=== PATIENT | female | born 1935 | race Caucasian/White ===

== ENCOUNTER 2016-08-29 14:22 | Emergency (ER) | payer MEDICARE ==
--- NOTE | 2016-08-29 14:58 | ED ---
Fall HPI - General Chief Complaint: Fall Stated Complaint: Fall/Head injury Time Seen by Provider: 08/29/16 14:38 Source: patient Mode of arrival: ambulatory - History of Present Illness Initial Comments: The patient is a 81-year-old female who presents to the ED with a chief complaint of fall. The patient states that she was walking down into her son's basement when her foot slipped on the final step and she flew forward. Patient states that she landed on the right side of her body, including her right elbow , right knee, right side of her face. The patient hit her head against a concrete floor. The patient states that she did not lose consciousness in the fall. She states that the fall was witnessed by her son who confirmed that she never lost consciousness. The patient has been ambulatory since the fall. Her friend states that she has been acting normally since the fall. The patient does have bruising of the right knee, right elbow. Patient also has bruising just above her right eye. The patient states that she is having pain in her right elbow and her right eye. Patient denies any nausea. The patient does not take any systemic anticoagulation. She states that she takes an occasional aspirin when she has a headache or other body pain. The patient states that her last dose of aspirin was yesterday. This was a full-strength aspirin. The patient denies any falls within the past 6 months. - Related Data Home Medications Medication Instructions Recorded Confirmed Cholecalciferol [Vitamin D3] 5,000 unit PO MOWE 08/29/16 08/29/16 Multivits-Min/Iron/FA/Lutein 1 tab PO DAILY 08/29/16 08/29/16 [Centrum Silver Women Tablet] Allergies Allergy/AdvReac Type Severity Reaction Status Date / Time codeine Allergy Unknown Verified 08/29/16 15:01 Penicillins Allergy Unknown Verified 08/29/16 15:01 sulfamethoxazole Allergy Unknown Verified 08/29/16 15:01 [From Bactrim] trimethoprim [From Bactrim] Allergy Unknown Verified 08/29/16 15:01 Review of Systems ROS Statement: Those systems with pertinent positive or pertinent negative responses have been documented in the HPI. ROS Other: All systems not noted in ROS Statement are negative. Constitutional: Denies: fever, chills, weakness Eyes: Denies: eye pain, eye discharge, vision change ENT: Denies: ear pain, throat pain, dental pain Respiratory: Denies: cough, dyspnea, wheezes, stridor Cardiovascular: Denies: chest pain Endocrine: Denies: fatigue Gastrointestinal: Denies: abdominal pain, nausea, vomiting, diarrhea, constipation Genitourinary: Denies: urgency, dysuria, frequency, hematuria Musculoskeletal: Reports: other (pain in the right shoulder, knee and elbow) Skin: Reports: change in color, other (bruise above right eye, elbow, shoulder, knee). Denies: rash, lesions Neurological: Denies: headache, weakness, numbness, paresthesias, confusion Psychiatric: Denies: anxiety, depression Past Medical History Past Medical History: No Reported History History of Any Multi-Drug Resistant Organisms: None Reported Past Surgical History: Hysterectomy Past Psychological History: No Psychological Hx Reported Smoking Status: Never smoker Past Alcohol Use History: None Reported Past Drug Use History: None Reported General Exam Limitations: no limitations General appearance: alert, in no apparent distress Head exam: Present: other (Bruise located above patient's right eye. This area is tender to palpation. There is no crepitus) Eye exam: Present: normal appearance, PERRL, EOMI, periorbital swelling, periorbital tenderness. Absent: scleral icterus, conjunctival injection, nystagmus Pupils: Present: normal accommodation, other (pupils are 4mm, equal and reactive to light) ENT exam: Present: normal exam Neck exam: Present: normal inspection, other (no tenderness to palpation of the spinous processes of the cervical spine) Respiratory exam: Present: normal lung sounds bilaterally. Absent: respiratory distress, wheezes, rales, chest wall tenderness Cardiovascular Exam: Present: regular rate, normal rhythm GI/Abdominal exam: Present: soft. Absent: distended, tenderness, guarding, rebound Extremities exam: Present: full ROM, tenderness (tenderness to palpation over the olecranon process of the right elbow), normal capillary refill, other ( swelling and bruising just inferolateral to the right knee) Back exam: Present: normal inspection, full ROM. Absent: tenderness Neurological exam: Present: alert, oriented X3, CN II-XII intact, normal gait, other (patient able to ambulate without assistance) Psychiatric exam: Present: normal affect, normal mood. Absent: depressed, agitated, anxious Skin exam: Present: warm, dry, intact, other (bruising noted above right eye, right elbow, right knee) Course Vital Signs 08/29/16 14:28 Temperature 98.1 F Pulse Rate 80 Respiratory 20 Rate Blood Pressure 196/88 O2 Sat by Pulse 99 Oximetry Medical Decision Making - Medical Decision Making Patient is a 81-year-old female who presents with a chief complaint of fall. Patient lost her balance and fell forward, hitting her head, elbow, right knee against a concrete floor. There was no LOC. Patient does not take any antiplatelet agents or oral anticoagulation on a regular basis. She does take an occasional full-strength aspirin. Patient is complaining of pain in the right elbow, right knee, right shoulder. Patient also has injury to face just above her right eye. This is tender to palpation. Patient has full range of motion of the affected joints. Distal PMS intact of right upper extremity and right lower extremity. The patient able to ambulate without any pain or any need of assistance. Neurologic exam within normal limits. Cranial nerves intact. Given patient's age, will order CT head and CT C-spine. CT face given bruising about patient's right eye. Check x-ray imaging of right ribs, chest, right shoulder, right elbow, right knee. Patient states that she would not like any medications for pain control at this point in time. 4:27 PM Updated patient of overall findings including no evidence of intracranial bleed or fracture. Patient will be discharged home at this point in time. Counseled her that the bruising over her right eye may worsen over the course of the next 24-48 hours. Encouraged her to return to the ED should she develop confusion, nausea or vomiting while at home. I have answered all of the patient's questions to her satisfaction. Disposition Clinical Impression: Fall, Contusion of face, Traumatic ecchymosis of right elbow, Traumatic ecchymosis of right knee Disposition: HOME SELF-CARE Condition: Good Instructions: Fall Prevention for Older Adults (ED) Additional Instructions: Please return to the ED should you have worsening headache, nausea, or confusion while at home. Time of Disposition: 16:29
--- NOTE | 2016-08-29 15:43 | CT ---
EXAMINATION TYPE: CT brain bindu wo con DATE OF EXAM: 08/29/2016 3:35 PM COMPARISON: NONE HISTORY: 81-year-old female with fall and head injury, rule out bleed CT DLP: Total combined radiation dose reported on facial bone study. Automated exposure control for dose reduction was used. Technique: Examination of the head was done in axial plane without intravenous contrast. Coronal and sagittal reconstructions performed. CT of the cervical spine was obtained in axial plane without intravenous injection of contrast mater ial. Coronal and sagittal reformatted images were obtained from the axial views for evaluation of f ractures, spinal alignment and canal. FINDINGS: Head: There is no evidence of acute intracranial hemorrhage, acute ischemic changes, mass, mass-effect, or extra-axial fluid collection. There is no effacement of cerebral sulci or basal subarachnoid cister ns. There is no hydrocephalus. There is no midline shift. Travis-white matter distinction is preserv ed. There is mild generalized supratentorial volume loss. There is right frontal and periorbital soft tissue contusion and hematoma. No underlying calvarial fr acture. Mastoid air cells well pneumatized. Cervical spine: No craniocervical junction of the body, predental space widening, or prevertebral soft tissue swellin g. Moderate disc/endplate degenerative changes present from C4 through C7 levels. There are disc osteoph yte complexes and marked uncovertebral joint arthropathy and scattered hypertrophic facet arthropathy as well. Alignment is maintained. No acute fracture of the cervical spine. Changes result in moderate to severe right-sided neuroforaminal stenoses at C3-C4 and C4-C5 and varia ble mild neuroforaminal narrowing at additional levels. No significant spinal canal stenosis seen. No prevertebral or paravertebral soft tissue abnormality. COMBINED IMPRESSION: 1. Right frontal scalp and periorbital soft tissue contusion. No underlying calvarial fracture or acu te intracranial abnormality seen. 2. No acute fracture or malalignment of the cervical spine. Moderate spondylotic change especially in the mid cervical spine. Resultant moderate to severe neuroforaminal stenosis on the right at C3-C4 a nd C4-C5.
--- NOTE | 2016-08-29 15:52 | CT ---
EXAMINATION TYPE: CT facial bones wo con DATE OF EXAM: 08/29/2016 3:43 PM COMPARISON: NONE HISTORY: 81-year-old female with fall, rule out fracture, hematoma over the right thigh CT DLP: 1838.9 mGycm (total for the CT brain, facial bones, and cervical spine) Automated exposure control for dose reduction was used. TECHNIQUE: CT scan of the facial bones is performed without contrast, axial images are obtained, mariya nal reformatted images are also reviewed. FINDINGS: There is right periorbital soft tissue contusion/hematoma. Orbits and globes remain intact. No facial bone fracture. Slight rightward nasal septal deviation. IMPRESSION: Right periorbital soft tissue contusion/hematoma. No underlying acute orbital or facial bone fracture .
--- NOTE | 2016-08-29 16:07 | XR ---
EXAMINATION TYPE: PA view chest and right rib series. 2 views right shoulder. 3 views right elbow. 3 views right knee. DATE OF EXAM: 08/29/2016 3:58 PM COMPARISON: NONE HISTORY: 81-year-old female with fall down basement stairs today, pain. Rule out fracture. FINDINGS: CHEST: Heart is upper limits of normal in size with mild elongation of the thoracic aorta and at this chroni c arch calcifications. Strandy atelectasis at the lower lungs. No consolidation, pneumothorax, or ple ural effusion. Right RIBS: No displaced right rib fracture. Right shoulder: Moderate degenerative change at the AC joint. AC joint remains intact. Bony sclerosis and irregularit y at the greater tuberosity suggests chronic rotator cuff tendinopathy. No acute fracture, subluxatio n, or dislocation. Right elbow: No significant elbow joint effusion. Obliquity on the lateral view limits optimal evaluation of the p osterior fat-pad of the elbow. No acute fracture, subluxation, or dislocation. Right knee: Extensor mechanism remains intact. There is mild anterior infrapatellar soft tissue swelling. No acut e fracture, subluxation, or dislocation. IMPRESSION: 1. Chest: No acute cardiopulmonary process. 2. Right ribs: No displaced right rib fracture. 3. Right shoulder: Moderate AC joint osteoarthrosis and changes of chronic rotator cuff tendinopathy. No acute osseous abnormality seen. 4. Right elbow: Slightly suboptimal positioning on the lateral view for assessment of the posterior f at pad. No acute osseous abnormality seen. 5. Right knee: Mild anterior infrapatellar soft tissue swelling. No acute osseous abnormality seen.
[2016-08-29 16:39] VITALS: BP 156/79; PULSE 76; RESP 18; TEMP 98.2
== END 2016-08-29 16:39 | disposition home or self-care (01) ==
LOC: EC 14:22
DX: S00.11XA Contusion of right eyelid and periocular area, initial encounter (principal); S50.01XA Contusion of right elbow, initial encounter; S80.01XA Contusion of right knee, initial encounter; M25.511 Pain in right shoulder; Z88.0 Allergy status to penicillin; Z88.2 Allergy status to sulfonamides; Z88.1 Allergy status to other antibiotic agents; Z88.5 Allergy status to narcotic agent; Z79.899 Other long term (current) drug therapy; W10.9XXA Fall (on) (from) unspecified stairs and steps, initial encounter; Y93.01 Activity, walking, marching and hiking; Y92.018 Other place in single-family (private) house as the place of occurrence of the external cause
CPT/HCPCS: 70450; 70486; 72125; 99284

== ENCOUNTER → 2016-10-14 | Outpatient (CLI) | payer MEDICARE ==
[2016-10-14 09:57] LABS: Basophils # (A) 0.1 k/uL (0-0.2); Basophils % (A) 1 %; CH 32.2; CHCM 33.2; Eosinophils # (A) 0.1 k/uL (0-0.7); Eosinophils % (A) 3 %; HCT 46.4 % (34.0-46.0); HDW 2.38; Luc % (Auto) 2; Lymphocytes # (A) 1.4 k/uL (1.0-4.8); Lymphocytes % (A) 28 %; MCH 31.5 pg (25.0-35.0); MCHC 32.4 g/dL (31.0-37.0); MCV 97.3 fL (80.0-100.0); Mean Platelet Volume 7.8; Monocytes # (A) 0.2 k/uL (0-1.0); Monocytes % (A) 5 %; Neutrophils % (A) 61 %; RBC 4.76 m/uL (3.80-5.40); RDW 12.8 % (11.5-15.5); WBC 4.8 k/uL (3.8-10.6)
[2016-10-14 10:11] LABS: ALT 28 U/L (9-52); AST 28 U/L (14-36); Alkaline Phosphatase 69 U/L (38-126); Anion Gap 11 mmol/L; Blood Urea Nitrogen 22 mg/dL (7-17); Calcium 9.6 mg/dL (8.4-10.2); Carbon Dioxide 29 mmol/L (22-30); Chloride 103 mmol/L (98-107); Cholesterol 205 mg/dL (<200); Glucose 93 mg/dL (74-99); HDL Cholesterol 52 mg/dL (40-60); Non-African American GFR(MDRD) >60 (>60 ml/min/1.73 sqM); Potassium 4.4 mmol/L (3.5-5.1); Sodium 143 mmol/L (137-145); Total Bilirubin 0.9 mg/dL (0.2-1.3); Total Protein 7.2 g/dL (6.3-8.2); Triglycerides 94 mg/dL (<150)
[2016-10-14 10:15] LABS: Appearance,Urine Clear (Clear); Bilirubin,Urine Negative (Negative); Glucose,Urine (UA) Negative (Negative); Ketones,Urine Negative (Negative); Leukocyte Esterase,Urine Negative (Negative); Nitrite,Urine Negative (Negative); PH, Urine 6.5 (5.0-8.0); Particle Count 1015; Protein,Urine Negative (Negative); RBC,Urine 3 /hpf (0-5); Specific Gravity,Urine 1.005 (1.001-1.035); Squamous Epithelial Cell,Urine 1 /hpf (0-4); UA Billing (MACRO vs. MICRO) MICRO; Urobilinogen,Urine <2.0 mg/dL (<2.0); WBC,Urine <1 /hpf (0-5)
--- NOTE | 2016-10-16 08:00 | MM ---
Reason for exam: screening (asymptomatic). Last mammogram was performed 1 year and 1 month ago. History: Patient is postmenopausal and history of other cancer. Family history of breast cancer in maternal aunt and breast cancer in paternal aunt. Benign stereotactic core biopsy of the left breast, February 14, 2002. Core biopsy of the left breast. 4 excisional biopsies of the left breast. 2 excisional biopsies of the right breast. Took estrogen for 2 years beginning at age 39. Physical Findings: A clinical breast exam by your physician is recommended on an annual basis and results should be correlated with mammographic findings. MG 3D Screening Mammo W/Cad Bilateral CC and MLO view(s) were taken. Prior study comparison: September 26, 2015, bilateral MG screening mammo w CAD. September 13, 2014, bilateral MG screening mammo w CAD. September 12, 2013, CAD bilateral diagnostic mammogram. There are scattered fibroglandular densities. Finding: There are typically benign dystrophic, segmental calcifications in the anterior position of the left breast. Previous mammotome biopsy in the left breast. There is no discrete abnormality. ASSESSMENT: Benign, BI-RAD 2 RECOMMENDATION: Routine screening mammogram of both breasts in 1 year.
== END | disposition home or self-care (01) ==
LOC: RADMAMWWP 09:10
PROVIDERS: ATTEND Family Medicine
DX: Z12.31 Encounter for screening mammogram for malignant neoplasm of breast (principal); Z00.00 Encounter for general adult medical examination without abnormal findings
CPT/HCPCS: 80061; 80053; 85025; 81001; 87086; 77063; G0202

== ENCOUNTER → 2017-08-25 | Outpatient (CLI) | payer MEDICARE ==
[2017-08-25 15:48] LABS: HCT 43.6 % (34.0-46.0); HGB 14.7 gm/dL (11.4-16.0); MCH 31.6 pg (25.0-35.0); MCHC 33.8 g/dL (31.0-37.0); MCV 93.6 fL (80.0-100.0); Mean Platelet Volume 7.5; Platelet Count 166 k/uL (150-450); RBC 4.66 m/uL (3.80-5.40); RDW 12.3 % (11.5-15.5); WBC 5.9 k/uL (3.8-10.6)
[2017-08-25 15:49] LABS: Appearance,Urine Clear (Clear); Bilirubin,Urine Negative (Negative); Blood,Urine Small (Negative); Color,Urine Light Yellow; Glucose,Urine (UA) Negative (Negative); Ketones,Urine Negative (Negative); Leukocyte Esterase,Urine Negative (Negative); Nitrite,Urine Negative (Negative); PH, Urine 6.5 (5.0-8.0); Protein,Urine Negative (Negative); RBC,Urine 11 /hpf (0-5); Specific Gravity,Urine 1.011 (1.001-1.035); Squamous Epithelial Cell,Urine 2 /hpf (0-4); Urobilinogen,Urine <2.0 mg/dL (<2.0); WBC,Urine <1 /hpf (0-5)
[2017-08-25 15:51] LABS: Potassium 4.6 mmol/L (3.5-5.1)
[2017-08-25 16:08] LABS: T4, Free (Free Thyroxine) 0.99 ng/dL (0.78-2.19)
== END | disposition home or self-care (01) ==
LOC: LABWHC1 14:48
PROVIDERS: ATTEND Family Medicine
DX: I10 Essential (primary) hypertension (principal); R31.21 Asymptomatic microscopic hematuria
CPT/HCPCS: 36415; 80048; 81001; 84439; 84443; 84450; 84460; 85027; 87086

== ENCOUNTER → 2017-09-08 | Outpatient (CLI) | payer MEDICARE ==
[2017-09-08 15:27] LABS: Appearance,Urine Clear (Clear); Bilirubin,Urine Negative (Negative); Blood,Urine Small (Negative); Color,Urine Light Yellow; Glucose,Urine (UA) Negative (Negative); Ketones,Urine Negative (Negative); Leukocyte Esterase,Urine Negative (Negative); Protein,Urine Negative (Negative); RBC,Urine 3 /hpf (0-5); Specific Gravity,Urine 1.007 (1.001-1.035); Squamous Epithelial Cell,Urine <1 /hpf (0-4); Urobilinogen,Urine <2.0 mg/dL (<2.0); WBC,Urine <1 /hpf (0-5)
[2017-09-08 15:50] LABS: Calcium 9.6 mg/dL (8.4-10.2); Potassium 4.7 mmol/L (3.5-5.1)
== END | disposition home or self-care (01) ==
LOC: LABWHC1 14:49
PROVIDERS: ATTEND Family Medicine
DX: R53.83 Other fatigue (principal); R31.21 Asymptomatic microscopic hematuria; R89.9 Unspecified abnormal finding in specimens from other organs, systems and tissues
CPT/HCPCS: 36415; 80048; 81001; 82306; 88108

== ENCOUNTER → 2017-09-14 | Outpatient (CLI) | payer MEDICARE ==
[2017-09-14 20:41] LABS: Anti-DNA, DS unit <1.0 IU/mL; DNA Double-Stranded NEGATIVE (NEGATIVE)
== END | disposition home or self-care (01) ==
LOC: LABWHC1 15:20
PROVIDERS: ATTEND Physician Assistant Medical
DX: L95.8 Other vasculitis limited to the skin (principal); S60.411A Abrasion of left index finger, initial encounter; R23.3 Spontaneous ecchymoses
CPT/HCPCS: 36415; 86038; 86162; 86225; 86235

== ENCOUNTER → 2017-10-01 | Outpatient (CLI) | payer MEDICARE ==
[2017-10-01 09:05] LABS: Appearance,Urine Clear (Clear); Bacteria,Urine Rare /hpf; Bilirubin,Urine Negative (Negative); Blood,Urine Trace (Negative); Color,Urine Yellow; Glucose,Urine (UA) Negative (Negative); Ketones,Urine Negative (Negative); Leukocyte Esterase,Urine Negative (Negative); Mucus,Urine Rare /hpf; Nitrite,Urine Negative (Negative); Protein,Urine Negative (Negative); RBC,Urine 3 /hpf (0-5); Specific Gravity,Urine 1.013 (1.001-1.035); Squamous Epithelial Cell,Urine 1 /hpf (0-4); Urobilinogen,Urine <2.0 mg/dL (<2.0); WBC,Urine 1 /hpf (0-5)
[2017-10-01 10:15] LABS: Cholesterol 216 mg/dL (<200); HDL Cholesterol 56 mg/dL (40-60); LDL Cholesterol,Calculated 136 mg/dL (0-99); Triglycerides 119 mg/dL (<150)
== END | disposition home or self-care (01) ==
LOC: LABWHC1 08:05
PROVIDERS: ATTEND Internal Medicine Interventional Cardiology
DX: N39.0 Urinary tract infection, site not specified (principal); I10 Essential (primary) hypertension
CPT/HCPCS: 36415; 80061; 81001

== ENCOUNTER → 2017-11-11 | Outpatient (CLI) | payer MEDICARE ==
--- NOTE | 2017-11-12 08:59 | MM ---
Reason for exam: screening (asymptomatic). Last mammogram was performed 1 year and 1 month ago. History: Patient is postmenopausal and history of other cancer. Family history of breast cancer in maternal aunt and breast cancer in paternal aunt. Benign stereotactic core biopsy of the left breast, February 14, 2002. Core biopsy of the left breast. 4 excisional biopsies of the left breast. 2 excisional biopsies of the right breast. Took estrogen for 2 years beginning at age 39. Physical Findings: A clinical breast exam by your physician is recommended on an annual basis and results should be correlated with mammographic findings. MG 3D Screening Mammo W/Cad Bilateral CC and MLO view(s) were taken. Prior study comparison: October 14, 2016, bilateral MG 3d screening mammo w/cad. September 26, 2015, bilateral MG screening mammo w CAD. There are scattered fibroglandular densities. Finding: There are dystrophic calcifications in the anterior position of the left breast. Previous mammotome biopsy in the left breast. There is no discrete abnormality. ASSESSMENT: Benign, BI-RAD 2 RECOMMENDATION: Routine screening mammogram of both breasts in 1 year.
== END | disposition home or self-care (01) ==
LOC: RADMAMWWP 08:14
PROVIDERS: ATTEND Obstetrics & Gynecology
DX: Z12.31 Encounter for screening mammogram for malignant neoplasm of breast (principal)
CPT/HCPCS: 77063; 77067

== ENCOUNTER → 2017-11-11 | Outpatient (CLI) | payer MEDICARE ==
--- NOTE | 2017-11-11 09:18 | US ---
EXAMINATION TYPE: US thyroid st tissue head/neck DATE OF EXAM: 11/11/2017 COMPARISON: US 04/10/2016 CLINICAL HISTORY: E04.1 Thyroid Nodule. GLAND SIZE: Right Lobe: Surgically absent cm Left Lobe: 4.5 x 2.0 x 1.6 cm Overall Parenchyma: heterogeneous Isthmus Thickness: 0.3 cm NODULES RIGHT: # of nodules measured on right: 0 LEFT: # of nodules measured on left: 2 1. 0.3 X 0.3 x 0.4 cm hypoechoic cystic nodule at the upper/mid pole with well-defined margins; . This nodule is wider than tall and shows no intranodular vascularity. Prior size: Not previous visualized 2. 0.6 X 0.3 x 0.6 cm hypoechoic solid nodule at the upper pole with well-defined margins; . This n odule is wider than tall and shows intranodular vascularity. Prior size: 0.6 x 0.3 ISTHMUS: # of nodules measured in the isthmus: 0 Bilateral neck scanned, no evidence of lymphadenopathy. IMPRESSION: Stable size of a 6 mm left thyroid nodule in comparison to the exam of 04/10/2016, favored to be benig n and new cystic-appearing 4 mm left thyroid lesion. Surveillance could be performed given history of right thyroidectomy.
== END ==
LOC: RADUSWWP 08:10
PROVIDERS: ATTEND Otolaryngology
DX: E04.2 Nontoxic multinodular goiter (principal); Z90.89 Acquired absence of other organs
CPT/HCPCS: 76536

== ENCOUNTER → 2018-07-17 | Outpatient (CLI) | payer MEDICARE ==
[2018-07-17 09:55] LABS: Basophils # (A) 0.1 k/uL (0-0.2); Basophils % (A) 1 %; Eosinophils # (A) 0.2 k/uL (0-0.7); Eosinophils % (A) 5 %; HCT 45.8 % (34.0-46.0); HGB 14.6 gm/dL (11.4-16.0); Lymphocytes # (A) 1.3 k/uL (1.0-4.8); Lymphocytes % (A) 28 %; MCH 30.6 pg (25.0-35.0); MCHC 31.9 g/dL (31.0-37.0); MCV 95.9 fL (80.0-100.0); Mean Platelet Volume 6.9; Monocytes # (A) 0.2 k/uL (0-1.0); Monocytes % (A) 5 %; Neutrophils # (A) 2.8 k/uL (1.3-7.7); Neutrophils % (A) 59 %; Platelet Count 171 k/uL (150-450); RBC 4.78 m/uL (3.80-5.40); RDW 12.9 % (11.5-15.5); WBC 4.7 k/uL (3.8-10.6)
[2018-07-17 10:48] LABS: Appearance,Urine Cloudy (Clear); Bacteria,Urine Many /hpf; Bilirubin,Urine Negative (Negative); Blood,Urine Small (Negative); Color,Urine Yellow; Glucose,Urine (UA) Negative (Negative); Ketones,Urine Negative (Negative); Leukocyte Esterase,Urine Large (Negative); Mucus,Urine Rare /hpf; Nitrite,Urine Positive (Negative); PH, Urine 6.5 (5.0-8.0); Protein,Urine Negative (Negative); RBC,Urine 5 /hpf (0-5); Specific Gravity,Urine 1.012 (1.001-1.035); Squamous Epithelial Cell,Urine 5 /hpf (0-4); Urobilinogen,Urine <2.0 mg/dL (<2.0); WBC,Urine 34 /hpf (0-5)
[2018-07-17 17:12] LABS: Albumin 4.2 g/dL (3.80-4.90); Albumin/Globulin Ratio 2.21 (1.20-2.10); Anion Gap 5.9 mmol/L (4.00-12.00); Calcium 9.3 mg/dL (8.7-10.3); Carbon Dioxide 29.1 mmol/L (21.6-31.8); Globulin 1.9 g/dL (1.6-3.3); Potassium 4.5 mmol/L (3.5-5.5); Total Bilirubin 0.5 mg/dL (0.2-1.2); Total Protein 6.1 g/dL (6.2-8.2)
== END | disposition home or self-care (01) ==
LOC: LABWHC1 09:39
PROVIDERS: ATTEND Family Medicine
DX: Z00.01 Encounter for general adult medical examination with abnormal findings (principal); E78.00 Pure hypercholesterolemia, unspecified; M81.0 Age-related osteoporosis without current pathological fracture
CPT/HCPCS: 36415; 80053; 80061; 81001; 82306; 84443; 85025

== ENCOUNTER → 2018-08-20 | Outpatient (CLI) | payer MEDICARE ==
[2018-08-20 11:08] LABS: Basophils # (A) 0.1 k/uL (0-0.2); Basophils % (A) 1 %; Eosinophils # (A) 0.2 k/uL (0-0.7); Eosinophils % (A) 5 %; HCT 44.8 % (34.0-46.0); HGB 14.9 gm/dL (11.4-16.0); Lymphocytes # (A) 0.9 k/uL (1.0-4.8); Lymphocytes % (A) 16 %; MCH 31.5 pg (25.0-35.0); MCHC 33.2 g/dL (31.0-37.0); MCV 94.9 fL (80.0-100.0); Mean Platelet Volume 7.7; Monocytes # (A) 0.3 k/uL (0-1.0); Monocytes % (A) 6 %; Neutrophils # (A) 3.7 k/uL (1.3-7.7); Neutrophils % (A) 71 %; Platelet Count 149 k/uL (150-450); RBC 4.72 m/uL (3.80-5.40); RDW 12.6 % (11.5-15.5); WBC 5.3 k/uL (3.8-10.6)
[2018-08-20 17:54] LABS: Calcium 9.5 mg/dL (8.7-10.3); Potassium 4.5 mmol/L (3.5-5.5)
== END ==
LOC: LABWHC1 09:26
PROVIDERS: ATTEND Family Medicine
DX: L03.211 Cellulitis of face (principal); N28.9 Disorder of kidney and ureter, unspecified
CPT/HCPCS: 36415; 80048; 85025

== ENCOUNTER 2018-08-28 02:52 | Observation (INO) | payer MEDICARE ==
--- NOTE | 2018-08-28 03:25 | ED ---
General Adult HPI - General Chief complaint: Chest Pain Stated complaint: Chest/Back Pain Time Seen by Provider: 08/28/18 03:08 Source: patient Mode of arrival: ambulatory Limitations: no limitations - History of Present Illness Initial comments: Miss Tinajero is a pleasant 83-year-old female who presents the emergency department today for evaluation of chest and back pain which woke her from sleep. Patient reports that she's been having some intermittent chest heaviness in the sensation that she describes as feeling like there is cooled with in her chest which radiates to her arms. This is been happening intermittently throughout the past week. She reports that 2 times this week she 's been woken from sleep with chest pain. She does state that when she has this chest pain this morning she did have some burping afterwards which she thinks may be related to some stomach upset. Patient denies any lightheadedness , diaphoresis or shortness of breath. She denies any previous cardiac history. Patient has no history of hypertension hyperlipidemia or ease. She has been seen by cardiology once in the past for a leaky valve. She's never been told she has an irregular EKG. - Related Data Home Medications Medication Instructions Recorded Confirmed Cholecalciferol [Vitamin D3] 5,000 unit PO MOWE 08/29/16 08/28/18 Multivit-Min/Iron/Folic/Lutein 1 tab PO DAILY 08/29/16 08/28/18 [Centrum Silver Women Tablet] Allergies Allergy/AdvReac Type Severity Reaction Status Date / Time codeine Allergy Unknown Verified 08/29/16 15:01 Penicillins Allergy Unknown Verified 08/29/16 15:01 sulfamethoxazole Allergy Unknown Verified 08/29/16 15:01 [From Bactrim] trimethoprim [From Bactrim] Allergy Unknown Verified 08/29/16 15:01 Review of Systems ROS Statement: Those systems with pertinent positive or pertinent negative responses have been documented in the HPI. ROS Other: All systems not noted in ROS Statement are negative. Past Medical History Past Medical History: No Reported History History of Any Multi-Drug Resistant Organisms: None Reported Past Surgical History: Hysterectomy Past Psychological History: No Psychological Hx Reported Smoking Status: Never smoker Past Alcohol Use History: None Reported Past Drug Use History: None Reported General Exam - General Exam Comments Initial Comments: Physical Exam GENERAL: Patient is well-developed and well-nourished. Patient is nontoxic and well- hydrated and is in no distress. HENT: Normocephalic, Atraumatic. EYES: PERRL, EOMI PULMONARY: Unlabored respirations. No audible rales rhonchi or wheezing was noted. CARDIOVASCULAR: There is a regular rate and rhythm without any gallops or rubs. Systolic murmur ABDOMEN: Soft and nontender with normal bowel sounds. SKIN: Skin is clear with no lesions or rashes and otherwise unremarkable. : Deferred NEUROLOGIC: Patient is alert and oriented x3. Moving all extremities spontaneously MUSCULOSKELETAL: Normal extremities with adequate strength and full range of motion. No lower extremity swelling or edema. No calf tenderness. PSYCHIATRIC: Normal psychiatric evaluation. Limitations: no limitations Limitations: no limitations Course Vital Signs 08/28/18 02:58 Temperature 97.7 F Pulse Rate 80 Respiratory 20 Rate Blood Pressure 190/78 O2 Sat by Pulse 99 Oximetry EKG Findings - EKG Comments: EKG Findings:: EKG is obtained at 3:10 AM, rate of 79 rhythm is sinus there is a right bundle branch block, [place] intervals 142 QRS is 122 QTc is [address] elevations or depressions there is no evidence of acute ischemia or infarction. There are no previous EKGs in our system for comparison. Medical Decision Making - Medical Decision Making The patient was seen and evaluated history was obtained from the patient Patient with no cardiac history presenting with intermittent episodes of chest discomfort and heaviness as well as waking from sleep with chest pain. The symptoms patient describes today that woke her from sleep do seem to be GI in nature as she woke from sleep with a burning pressure-like discomfort in her chest which improved after burping however the patient does report she's been having some heaviness in her chest throughout the week which she describes as a feeling that there is cold inside her chest that radiates to her arms. EKG reveals right bundle branch block with no previous for comparison Chest x-ray is unremarkable Labs in the ER reveal a negative troponin, mildly elevated BUN and creatinine concerning for dehydration Patient's never had a thorough cardiac evaluation considering her advanced age and concerning symptoms I will plan to place her in observation for further evaluation by cardiology. Additional labs and echo were ordered and patient was admitted with a consult to cardiology - Lab Data Result diagrams: 08/28/18 03:27 08/28/18 03:27 Lab Results 08/28/18 08/28/18 08/28/18 Range/Units 03:27 03:27 03:27 WBC 5.0 (3.8-10.6) k/uL RBC 4.57 (3.80-5.40) m/uL Hgb 14.6 (11.4-16.0) gm/dL Hct 43.8 (34.0-46.0) % MCV 95.8 (80.0-100.0) fL MCH 32.0 (25.0-35.0) pg MCHC 33.4 (31.0-37.0) g/dL RDW 12.9 (11.5-15.5) % Plt Count 156 (150-450) k/uL Neutrophils % 52 % Lymphocytes % 28 % Monocytes % 9 % Eosinophils % 6 % Basophils % 1 % Neutrophils # 2.6 (1.3-7.7) k/uL Lymphocytes # 1.4 (1.0-4.8) k/uL Monocytes # 0.4 (0-1.0) k/uL Eosinophils # 0.3 (0-0.7) k/uL Basophils # 0.1 (0-0.2) k/uL PT (9.0-12.0) sec INR (<1.2) APTT (22.0-30.0) sec Sodium 142 (137-145) mmol/L Potassium 4.5 (3.5-5.1) mmol/L Chloride 108 H (98-107) mmol/L Carbon Dioxide 25 (22-30) mmol/L Anion Gap 9 mmol/L BUN 20 H (7-17) mg/dL Creatinine 1.17 H (0.52-1.04) mg/dL Est GFR (CKD-EPI)AfAm 51 (>60 ml/min/1.73 sqM) Est GFR (CKD-EPI)NonAf 44 (>60 ml/min/1.73 sqM) Glucose 105 H (74-99) mg/dL Calcium 9.7 (8.4-10.2) mg/dL Magnesium 2.2 (1.6-2.3) mg/dL Total Bilirubin 0.5 (0.2-1.3) mg/dL AST 28 (14-36) U/L ALT 34 (9-52) U/L Alkaline Phosphatase 85 (38-126) U/L Troponin I (0.000-0.034) ng/mL NT-Pro-B Natriuret Pep 136 pg/mL Total Protein 6.8 (6.3-8.2) g/dL Albumin 4.2 (3.5-5.0) g/dL 08/28/18 08/28/18 Range/Units 03:27 03:27 WBC (3.8-10.6) k/uL RBC (3.80-5.40) m/uL Hgb (11.4-16.0) gm/dL Hct (34.0-46.0) % MCV (80.0-100.0) fL MCH (25.0-35.0) pg MCHC (31.0-37.0) g/dL RDW (11.5-15.5) % Plt Count (150-450) k/uL Neutrophils % % Lymphocytes % % Monocytes % % Eosinophils % % Basophils % % Neutrophils # (1.3-7.7) k/uL Lymphocytes # (1.0-4.8) k/uL Monocytes # (0-1.0) k/uL Eosinophils # (0-0.7) k/uL Basophils # (0-0.2) k/uL PT 10.5 (9.0-12.0) sec INR 1.0 (<1.2) APTT 23.2 (22.0-30.0) sec Sodium (137-145) mmol/L Potassium (3.5-5.1) mmol/L Chloride (98-107) mmol/L Carbon Dioxide (22-30) mmol/L Anion Gap mmol/L BUN (7-17) mg/dL Creatinine (0.52-1.04) mg/dL Est GFR (CKD-EPI)AfAm (>60 ml/min/1.73 sqM) Est GFR (CKD-EPI)NonAf (>60 ml/min/1.73 sqM) Glucose (74-99) mg/dL Calcium (8.4-10.2) mg/dL Magnesium (1.6-2.3) mg/dL Total Bilirubin (0.2-1.3) mg/dL AST (14-36) U/L ALT (9-52) U/L Alkaline Phosphatase (38-126) U/L Troponin I <0.012 (0.000-0.034) ng/mL NT-Pro-B Natriuret Pep pg/mL Total Protein (6.3-8.2) g/dL Albumin (3.5-5.0) g/dL Disposition Clinical Impression: Chest pain Disposition: ADMITTED IP TO THIS HOSP Condition: Stable Is patient prescribed a controlled substance at d/c from ED?: No Referrals: Shaggy Silva DO [Primary Care Provider] - 1-2 days
[2018-08-28 03:47] LABS: Basophils # (A) 0.1 k/uL (0-0.2); Basophils % (A) 1 %; Eosinophils # (A) 0.3 k/uL (0-0.7); Eosinophils % (A) 6 %; HCT 43.8 % (34.0-46.0); HGB 14.6 gm/dL (11.4-16.0); Lymphocytes # (A) 1.4 k/uL (1.0-4.8); Lymphocytes % (A) 28 %; MCHC 33.4 g/dL (31.0-37.0); MCV 95.8 fL (80.0-100.0); Mean Platelet Volume 7.4; Monocytes # (A) 0.4 k/uL (0-1.0); Monocytes % (A) 9 %; Neutrophils # (A) 2.6 k/uL (1.3-7.7); Neutrophils % (A) 52 %; Platelet Count 156 k/uL (150-450); RBC 4.57 m/uL (3.80-5.40); RDW 12.9 % (11.5-15.5)
[2018-08-28 03:55] LABS: Partial Thromboplastin Time 23.2 sec (22.0-30.0); Prothrombin Time 10.5 sec (9.0-12.0)
[2018-08-28 03:57] LABS: Albumin 4.2 g/dL (3.5-5.0); Calcium 9.7 mg/dL (8.4-10.2); Magnesium 2.2 mg/dL (1.6-2.3); Potassium 4.5 mmol/L (3.5-5.1); Total Bilirubin 0.5 mg/dL (0.2-1.3); Total Protein 6.8 g/dL (6.3-8.2)
[2018-08-28] MEDS ORDERED: NITROGLYCERIN SL TABS 0.4 MG TAB SUBLINGUAL PRN (04:27)
--- NOTE | 2018-08-28 04:38 | XR ---
INDICATION: Chest pain COMPARISON: CXR 08/29/16 FINDINGS: Frontal and lateral views of the chest are obtained. The cardiomediastinal silhouette is within normal limits. Pulmonary vascularity is normal. The lungs are clear. There is no pleural effusion or pneumothorax. There are no acute osseous findings. IMPRESSION: No radiographic evidence of acute cardiopulmonary disease.
[2018-08-28] MEDS: LOSARTAN 25 MG TAB PO SCH (10:40)
[2018-08-28] MEDS: amLODIPine 10 MG TAB PO SCH (10:40)
--- NOTE | 2018-08-28 11:44 | P.CRDCN ---
History of Present Illness History of present illness: This is a pleasant 83-year-old female past medical history significant for hypertension. She follows in the office with Dr. Barraza. we have been asked to see her in consultation for a episode of chest discomfort last night. She states she woke up around 2:00 in the morning with the pain around her torso underneath her breasts. She states it felt like a tight sensation like somebody was wrapping a rubber band around her body. She denies radiation down the arm, into the neck or into the jaw. She denies associated shortness of breath, dizziness, palpitations, nausea, vomiting or diaphoresis. Symptoms lasted approximately 3-4 minutes and subsided on her own. Upon arrival to the hospital EKG was performed and revealed right bundle branch block pattern with no acute ST or T wave abnormalities noted. Blood pressure was elevated on admission 190/78 with a heart rate of 80. She was on lisinopril approximately 2 months ago this was discontinued secondary to it causing throat irritation. No other medication was initiated at that time. She states she checks her blood pressure regularly at home and is fairly well-controlled always. Typically systolic blood pressures in the 130s. She denies any further symptoms of chest discomfort since coming to the hospital. She is seen and examined resting comfortably in bed in no acute distress. Chest x-ray is negative for an acute cardiopulmonary process. Laboratory data reviewed, cardiac enzymes negative 1, WBC 5, hemoglobin 14.6, platelets 156, sodium 142, potassium 4.5, creatinine 1.17, magnesium 2.2. She takes no daily cardiac medications. Most recent echocardiogram obtained in the office reveals preserved left ventricular systolic function with mild aortic regurgitation. At the time of my exam: CONSTITUTIONAL: Denies fever. Denies chills. EYES: Denies blurred vision. Denies vision changes. Denies eye pain. EARS, NOSE, MOUTH & THROAT: Denies headache. Denies sore throat. Denies ear pain. CARDIOVASCULAR: Denies chest pain. Denies shortness of breath. Denies orthopnea. Denies PND. Denies palpitations. RESPIRATORY: Denies cough. GASTROINTESTINAL: Denies abdominal pain. Denies diarrhea. Denies constipation. Denies nausea. Denies vomiting. MUSCULOSKELETAL: Denies myalgias. INTEGUMENTARY: Denies pruitis. Denies rash. NEUROLOGIC: Denies numbness. Denies tingling. Denies weakness. PSYCHIATRIC: Denies anxiety. Denies depression. ENDOCRINE: Denies fatigue. Denies weight change. Denies polydipsia. Denies polyurina. GENITOURINARY: Denies burning, hematuria or urgency with micturation. HEMATOLOGIC: Denies history of anemia. Denies bleeding. Blood pressure 189/77 heart rate 72 afebrile maintaining oxygen saturation on room air GENERAL: This is a 83-year-old female in no apparent distress at the time of my examination. HEENT: Head is atraumatic, normocephalic. Pupils are equal, round. Sclerae anicteric. Conjunctivae are clear. Mucous membranes of the mouth are moist. Neck is supple. There is no jugular venous distention. No carotid bruit is heard. LUNGS: Clear to auscultation no wheezes, rales or rhonchi. No chest wall tenderness is noted on palpation or with deep breathing. HEART: Regular rate and rhythm without murmurs, rubs or gallops. S1 and S2 heard. ABDOMEN: Soft, nontender. Bowel sounds are heard. No organomegaly noted. EXTREMITIES: No evidence of peripheral edema and no calf tenderness noted. VASCULAR: Radial and dorsalis pedis pulses palpated, no evidence of clubbing. NEUROLOGIC: Patient is awake, alert and oriented x3. ASSESSMENT Chest pain, atypical for angina. No acute EKG abnormalities. Hypertension, uncontrolled. PLAN Continue to obtain serial cardiac enzymes to rule out an acute coronary event. Obtain 2D echocardiogram and doppler study to assess cardiac structure and function. Add amlodipine 10 mg daily and losartan 25 mg daily. Increase activity and ambulation in the halls. Assess for exertional chest pain. Further recommendations to follow based on clinical course. Thank you kindly for this consultation. Nurse Practitioner note has been reviewed, I agree with a documented findings and plan of care. Patient was seen and examined. Past Medical History Past Medical History: No Reported History History of Any Multi-Drug Resistant Organisms: None Reported Past Surgical History: Hysterectomy Additional Past Surgical History / Comment(s): cataract surgery Past Psychological History: No Psychological Hx Reported Smoking Status: Never smoker Past Alcohol Use History: None Reported Past Drug Use History: None Reported Medications and Allergies Home Medications Medication Instructions Recorded Confirmed Type Sulfamethox-Tmp 800-160Mg [Bactrim 1 tab PO Q12HR 08/28/18 08/28/18 History DS 800-160 mg] Allergies Allergy/AdvReac Type Severity Reaction Status Date / Time codeine Allergy Unknown Verified 08/28/18 07:48 Penicillins Allergy Unknown Verified 08/28/18 07:48 sulfamethoxazole Allergy Unknown Verified 08/28/18 07:48 [From Bactrim] trimethoprim [From Bactrim] Allergy Unknown Verified 08/28/18 07:48 Physical Exam Vitals: Vital Signs Temp Pulse Pulse Resp BP BP BP 08/28/18 06:26 163/74 08/28/18 05:59 72 189/77 08/28/18 05:19 97.9 F 74 16 206/69 206/69 08/28/18 04:58 97.9 F 67 18 144/70 08/28/18 02:58 97.7 F 80 20 190/78 Pulse Ox 08/28/18 06:26 08/28/18 05:59 08/28/18 05:19 100 08/28/18 04:58 98 08/28/18 02:58 99 Intake and Output 08/27/18 08/28/18 08/28/18 22:59 06:59 14:59 Other: Voiding Method Toilet # Voids 1 Weight 74.1 kg Results 08/28/18 03:27 08/28/18 03:27 Cardiac Enzymes 08/28/18 08/28/18 Range/Units 03:27 03:27 AST 28 (14-36) U/L Troponin I <0.012 (0.000-0.034) ng/mL Coagulation 08/28/18 Range/Units 03:27 PT 10.5 (9.0-12.0) sec APTT 23.2 (22.0-30.0) sec CBC 08/28/18 Range/Units 03:27 WBC 5.0 (3.8-10.6) k/uL RBC 4.57 (3.80-5.40) m/uL Hgb 14.6 (11.4-16.0) gm/dL Hct 43.8 (34.0-46.0) % Plt Count 156 (150-450) k/uL Comprehensive Metabolic Panel 08/28/18 Range/Units 03:27 Sodium 142 (137-145) mmol/L Potassium 4.5 (3.5-5.1) mmol/L Chloride 108 H (98-107) mmol/L Carbon Dioxide 25 (22-30) mmol/L BUN 20 H (7-17) mg/dL Creatinine 1.17 H (0.52-1.04) mg/dL Glucose 105 H (74-99) mg/dL Calcium 9.7 (8.4-10.2) mg/dL AST 28 (14-36) U/L ALT 34 (9-52) U/L Alkaline Phosphatase 85 (38-126) U/L Total Protein 6.8 (6.3-8.2) g/dL Albumin 4.2 (3.5-5.0) g/dL Current Medications Generic Name Dose Route Start Last Admin Trade Name Freq PRN Reason Stop Dose Admin Aspirin 325 mg 08/29/18 09:00 Aspirin PO DAILY RICHARD Nitroglycerin 0.4 mg 08/28/18 04:27 Nitrostat SUBLINGUAL Q5M PRN Chest Pain Intake and Output 08/27/18 08/28/18 08/28/18 22:59 06:59 14:59 Other: Voiding Method Toilet # Voids 1 Weight 74.1 kg 08/28/18 03:27 08/28/18 03:27
--- NOTE | 2018-08-28 13:26 | ECHOF ---
Referral Reason:chest pain MEASUREMENTS -------- HEIGHT: 165.1 cm WEIGHT: 73.9 kg BP: RVIDd: 2.3 cm (< 3.3) IVSd: 1.3 cm (0.6 - 1.1) LVIDd: 3.2 cm (3.9 - 5.3) LVPWd: 1.5 cm (0.6 - 1.1) IVSs: 1.5 cm LVIDs: 2.8 cm LVPWs: 1.5 cm LAESV Index (A-L): 24.84 ml/m MV EXCURSION: 15.965 mm (> 18.000) MV EF SLOPE: 49 mm/s (70 - 150) EPSS: 0.0 cm MV E [place]: 0.73 m/s MV DecT: 171 ms MV A [place]: 0.78 m/s MV E/A Ratio: 0.94 AR PHT: 343 ms RAP: 5.00 mmHg RVSP: 27.27 mmHg FINDINGS -------- Sinus rhythm. This was a technically adequate study. The left ventricular size is normal. There is mild concentric left ventricular hypertrophy. Overa ll left ventricular systolic function is low-normal with, an EF between 50 - 55 %. The right ventricle is normal in size. The left atrial size is normal. The right atrial size is normal. There is mild aortic valve sclerosis. There is mild aortic regurgitation. Normal appearing mitral valve. No mitral regurgitation. Mild tricuspid regurgitation present. There is no evidence of pulmonary hypertension. The right v entricular systolic pressure, as measured by Doppler, is 27.27mmHg. There is no pulmonic regurgitation present. The aortic root size is normal. There is no pericardial effusion. CONCLUSIONS -------- 1. The left ventricular size is normal. 2. There is mild concentric left ventricular hypertrophy. 3. Overall left ventricular systolic function is low-normal with, an EF between 50 - 55 %. 4. The right ventricle is normal in size. 5. The left atrial size is normal. 6. The right atrial size is normal. 7. There is mild aortic valve sclerosis. 8. There is mild aortic regurgitation. 9. Mild tricuspid regurgitation present. 10. There is no evidence of pulmonary hypertension. 11. The right ventricular systolic pressure, as measured by Doppler, is 27.27mmHg. 12. There is no pulmonic regurgitation present. 13. The aortic root size is normal. 14. There is no pericardial effusion. FMD TEACHER: Virgie Montiel RDCS
--- NOTE | 2018-08-28 16:25 | P.HPIM ---
History of Present Illness H&P Date: 08/28/18 Chief Complaint: Chest discomfort 83-year-old female past medical history significant for hypertension. She follows in the office with Dr. Barraza. we have been asked to see her in consultation for a episode of chest discomfort last night. She states she woke up around 2:00 in the morning with the pain around her torso underneath her breasts. She states it felt like a tight sensation like somebody was wrapping a rubber band around her body. She denies radiation down the arm, into the neck or into the jaw. She denies associated shortness of breath, dizziness, palpitations, nausea, vomiting or diaphoresis. Symptoms lasted approximately 3- 4 minutes and subsided on her own. Upon arrival to the hospital EKG was performed and revealed right bundle branch block pattern with no acute ST or T wave abnormalities noted. Blood pressure was elevated on admission 190/78 with a heart rate of 80. She was on lisinopril approximately 2 months ago this was discontinued secondary to it causing throat irritation. No other medication was initiated at that time. She states she checks her blood pressure regularly at home and is fairly well-controlled always. Typically systolic blood pressures in the 130s. She denies any further symptoms of chest discomfort since coming to the hospital. She is seen and examined resting comfortably in bed in no acute distress. Chest x-ray is negative for an acute cardiopulmonary process. Laboratory data reviewed, cardiac enzymes negative 1, WBC 5, hemoglobin 14.6, platelets 156, sodium 142, potassium 4.5, creatinine 1.17, magnesium 2.2. She takes no daily cardiac medications. Most recent echocardiogram obtained in the office reveals preserved left ventricular systolic function with mild aortic regurgitation. Review of Systems CONSTITUTIONAL: Denies fever. Denies chills. EYES: Denies blurred vision. Denies vision changes. Denies eye pain. EARS, NOSE, MOUTH & THROAT: Denies headache. Denies sore throat. Denies ear pain. CARDIOVASCULAR: Denies chest pain. Denies shortness of breath. Denies orthopnea. Denies PND. Denies palpitations. RESPIRATORY: Denies cough. GASTROINTESTINAL: Denies abdominal pain. Denies diarrhea. Denies constipation. Denies nausea. Denies vomiting. MUSCULOSKELETAL: Denies myalgias. INTEGUMENTARY: Denies pruitis. Denies rash. NEUROLOGIC: Denies numbness. Denies tingling. Denies weakness. PSYCHIATRIC: Denies anxiety. Denies depression. ENDOCRINE: Denies fatigue. Denies weight change. Denies polydipsia. Denies polyurina. GENITOURINARY: Denies burning, hematuria or urgency with micturation. HEMATOLOGIC: Denies history of anemia. Denies bleeding. Past Medical History Past Medical History: No Reported History History of Any Multi-Drug Resistant Organisms: None Reported Past Surgical History: Hysterectomy Additional Past Surgical History / Comment(s): cataract surgery Past Psychological History: No Psychological Hx Reported Smoking Status: Never smoker Past Alcohol Use History: None Reported Past Drug Use History: None Reported Medications and Allergies Home Medications Medication Instructions Recorded Confirmed Type Sulfamethox-Tmp 800-160Mg [Bactrim 1 tab PO Q12HR 08/28/18 08/28/18 History DS 800-160 mg] Allergies Allergy/AdvReac Type Severity Reaction Status Date / Time codeine Allergy Unknown Verified 08/28/18 07:48 Penicillins Allergy Unknown Verified 08/28/18 07:48 sulfamethoxazole Allergy Unknown Verified 08/28/18 07:48 [From Bactrim] trimethoprim [From Bactrim] Allergy Unknown Verified 08/28/18 07:48 Physical Exam Vitals: Vital Signs Temp Pulse Pulse Resp BP BP BP 08/28/18 09:05 98.3 F 71 16 154/72 08/28/18 06:26 163/74 08/28/18 05:59 72 189/77 08/28/18 05:19 97.9 F 74 16 206/69 206/69 08/28/18 04:58 97.9 F 67 18 144/70 08/28/18 02:58 97.7 F 80 20 190/78 Pulse Ox 08/28/18 09:05 99 08/28/18 06:26 08/28/18 05:59 08/28/18 05:19 100 08/28/18 04:58 98 08/28/18 02:58 99 Intake and Output 08/27/18 08/28/18 08/28/18 22:59 06:59 14:59 Other: Voiding Method Toilet # Voids 1 Weight 74.1 kg Blood pressure 189/77 heart rate 72 afebrile maintaining oxygen saturation on room air GENERAL: This is a 83-year-old female in no apparent distress at the time of my examination. HEENT: Head is atraumatic, normocephalic. Pupils are equal, round. Sclerae anicteric. Conjunctivae are clear. Mucous membranes of the mouth are moist. Neck is supple. There is no jugular venous distention. No carotid bruit is heard. LUNGS: Clear to auscultation no wheezes, rales or rhonchi. No chest wall tenderness is noted on palpation or with deep breathing. HEART: Regular rate and rhythm without murmurs, rubs or gallops. S1 and S2 heard. ABDOMEN: Soft, nontender. Bowel sounds are heard. No organomegaly noted. EXTREMITIES: No evidence of peripheral edema and no calf tenderness noted. VASCULAR: Radial and dorsalis pedis pulses palpated, no evidence of clubbing. NEUROLOGIC: Patient is awake, alert and oriented x3. Results CBC & Chem 7: 08/28/18 03:27 08/28/18 03:27 Labs: Abnormal Lab Results - Last 24 Hours (Table) 08/28/18 Range/Units 03:27 Chloride 108 H (98-107) mmol/L BUN 20 H (7-17) mg/dL Creatinine 1.17 H (0.52-1.04) mg/dL Glucose 105 H (74-99) mg/dL Thrombosis Risk Factor Assmnt - Choose All That Apply Any of the Below Risk Factors Present?: No Other Risk Factors: Yes Each Risk Factor Represents 3 Points: Age 75 years or older Other congenital or acquired thrombophilia - If yes, enter type in comment: No Thrombosis Risk Factor Assessment Total Risk Factor Score: 3 Thrombosis Risk Factor Assessment Level: Moderate Risk Assessment and Plan Assessment: 1. Chest pain rule out acute coronary syndrome - Patient admitted to telemetry; monitor EKG and trend troponin - 2-D echocardiogram with Doppler for left ventricular function - Cardiology consult for further recommendations 2. Uncontrolled hypertension - Patient started on amlodipine 10 mg daily along with losartan 25 mg daily - Monitor blood pressure closely and make further adjustments as needed 3. Acute renal injury - Start patient on IV fluids; monitor MURPHY's, daily weights, renal function and electrolytes - Monitor BUN/creatinine closely; avoid nephrotoxins 4. DVT prophylaxis; SCDs CODE STATUS; full code
--- NOTE | 2018-08-28 17:04 | XR ---
EXAMINATION TYPE: XR sinus DATE OF EXAM: 08/28/2018 CLINICAL HISTORY: Facial pain , headache. TECHNIQUE: Hernandez, Jasso, and lateral image of the skull are obtained. COMPARISON: None. FINDINGS: The paranasal sinuses including the frontal and maxillary sinuses appear well aerated witho ut distinct abnormal opacification. Orbital floors and byrd are intact. Facial bones appear intact . IMPRESSION: No convincing radiographic evidence for sinusitis.
[2018-08-28] MEDS: SODIUM CHLORIDE 0.9% 1,000 ML IV SCH (18:14)
[2018-08-29] MEDS: SODIUM CHLORIDE 0.9% 1,000 ML IV SCH ×2 (05:38→19:54)
[2018-08-29 06:27] LABS: Basophils # (A) 0.1 k/uL (0-0.2); Basophils % (A) 1 %; Eosinophils # (A) 0.2 k/uL (0-0.7); Eosinophils % (A) 4 %; HCT 43.5 % (34.0-46.0); HGB 14.1 gm/dL (11.4-16.0); Lymphocytes # (A) 1.4 k/uL (1.0-4.8); Lymphocytes % (A) 29 %; MCH 31.3 pg (25.0-35.0); MCHC 32.5 g/dL (31.0-37.0); MCV 96.5 fL (80.0-100.0); Mean Platelet Volume 6.8; Monocytes # (A) 0.4 k/uL (0-1.0); Monocytes % (A) 8 %; Neutrophils # (A) 2.6 k/uL (1.3-7.7); Neutrophils % (A) 55 %; Platelet Count 171 k/uL (150-450); RBC 4.51 m/uL (3.80-5.40); RDW 12.8 % (11.5-15.5); WBC 4.7 k/uL (3.8-10.6)
[2018-08-29 06:55] LABS: Calcium 9.4 mg/dL (8.4-10.2); Potassium 4.5 mmol/L (3.5-5.1)
[2018-08-29] MEDS ORDERED: ASPIRIN 325 MG TAB PO SCH (09:00)
[2018-08-29 09:01] VITALS: RESP 18
[2018-08-29] MEDS: LOSARTAN 25 MG TAB PO SCH (09:01)
[2018-08-29] MEDS: amLODIPine 10 MG TAB PO SCH (09:01)
--- NOTE | 2018-08-29 15:45 | PN ---
PROGRESS NOTE This patient was admitted with chest pain. EKGs and cardiac enzymes were normal. Patient's blood pressure was elevated yesterday. Amlodipine and Cozaar is added. Her blood pressure is normal. She is not having any chest pain. Blood pressure now is 137/59 mmHg. First and second heart sounds are normal. Lungs are clear to auscultation and percussion. Cardiac enzymes are normal. Patient can be discharged home and follow up with Dr. Barraza as an outpatient. MMODL / IJN: [id number] /
[2018-08-29 21:03] VITALS: BP 128/59; PULSE 69; TEMP 98
== END 2018-08-29 21:15 | disposition home or self-care (01) ==
LOC: EC 02:52 → 3SCARD 04:29
PROVIDERS: ADMIT Hospitalist; ATTEND Hospitalist
DX: R07.89 Other chest pain (principal); I10 Essential (primary) hypertension; N17.9 Acute kidney failure, unspecified; I45.10 Unspecified right bundle-branch block; I35.1 Nonrheumatic aortic (valve) insufficiency; R79.89 Other specified abnormal findings of blood chemistry; Z88.0 Allergy status to penicillin; Z88.1 Allergy status to other antibiotic agents; Z88.2 Allergy status to sulfonamides; Z88.5 Allergy status to narcotic agent; Z90.710 Acquired absence of both cervix and uterus; Z88.8 Allergy status to other drugs, medicaments and biological substances; Z98.49 Cataract extraction status, unspecified eye
CPT/HCPCS: 99285; 36415; 93005; 93306; 83880; 80061; 80053; 80048; 83735; 84484; 85025 ×2; 85610; 85730; 70220; 71046; G0378 ×2

== ENCOUNTER → 2018-11-18 | Outpatient (CLI) | payer MEDICARE ==
--- NOTE | 2018-11-18 12:11 | BD ---
EXAMINATION TYPE: Axial Bone Density DATE OF EXAM: 11/18/2018 COMPARISON: 2016 CLINICAL HISTORY: Postmenopausal female Height: Weight: 160 pounds FRAX RISK QUESTIONS: Alcohol (3 or more units per day): no Family History (Parent hip fracture): no Glucocorticoids (More than 3mos): no (Ex: prednisone, prednisolone, methylprednisolone, dexamethasone, and hydrocortisone). History of Fracture in Adulthood: no Secondary Osteoporosis: 1. Type 1 Diabetes: no 2. Hyperthyroidism: no 3. Menopause before 45: complete hysterectomy age 39 4. Malnutrition: no 5. Chronic liver disease: no Rheumatoid Arthritis: no Current Tobacco Use: no RISK FACTORS HISTORY OF: Family History of Osteoporosis: not that patient is aware of Active: yes Diet low in dairy products/other sources of calcium: no Postmenopausal woman: yes Take estrogen and/or progesterone medications: not now How long: age [age] Lost more than 2 inches in height since high school: no Frequent falls: no Poor Health: no Hyperparathyroidism: no Adrenal Insufficiency: no MEDICATIONS: Prednisone or other steroids: no Thyroid Medications: no Osteoporosis Medications: no Additional Medications: none Additional History: EXAM MEASUREMENTS: Bone mineral densitometry was performed using the [employer] [facility]. Bone mineral density as measured about the Lumbar spine is: ----- L1-L4(G/cm2): 1.177 T Score Values are as follows: ----- L2: -0.2 ----- L3: 0.4 ----- L4: 0.2 ----- L1-L4: 0.0 Bone mineral density has: Increased 2.4% since study of: 12/04/2015 Bone mineral density about the R hip (g/cm2): 0.726 Bone mineral density about the L hip (g/cm2): 0.717 T Score values are as follows: -----R Neck: -2.2 -----L Neck: -2.3 -----R Total: -1.5 -----L Total: -1.8 Bone mineral density has: Increased 1.0% since study of: 12/04/2015 IMPRESSION: Osteopenia (T Score between -2.5 and -1). There is slightly increased risk of fracture and the patient may be considered for treatment. Re-Screen 2-5 years. NOTE: T-SCORE=SD OF THE YOUNG ADULT MEAN.
--- NOTE | 2018-11-19 11:26 | MM ---
Reason for exam: screening (asymptomatic). Last mammogram was performed 1 year ago. History: Patient is postmenopausal and history of other cancer. Family history of breast cancer in maternal aunt and breast cancer in paternal aunt. Benign stereotactic core biopsy of the left breast, February 14, 2002. Core biopsy of the left breast. 4 excisional biopsies of the left breast. 2 excisional biopsies of the right breast. Took estrogen for 2 years beginning at age 39. Physical Findings: A clinical breast exam by your physician is recommended on an annual basis and results should be correlated with mammographic findings. MG 3D Screening Mammo W/Cad Bilateral CC and MLO view(s) were taken. Prior study comparison: November 11, 2017, bilateral MG 3d screening mammo w/cad. October 14, 2016, bilateral MG 3d screening mammo w/cad. There are scattered fibroglandular densities. Benign calcifications in the left breast. No suspicious abnormality. Left biopsy marker noted. No significant changes when compared with prior studies. ASSESSMENT: Benign, BI-RAD 2 RECOMMENDATION: Routine screening mammogram of both breasts in 1 year.
== END | disposition home or self-care (01) ==
LOC: RADMAMWWP 09:08
PROVIDERS: ATTEND Obstetrics & Gynecology
DX: Z12.31 Encounter for screening mammogram for malignant neoplasm of breast (principal); M89.9 Disorder of bone, unspecified
CPT/HCPCS: 77063; 77067; 77080

== ENCOUNTER → 2018-11-18 | Outpatient (CLI) | payer MEDICARE ==
--- NOTE | 2018-11-18 10:27 | US ---
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 Follow up thyroid nodules, right thyroidectomy GLAND SIZE: Right Lobe: surgically absent cm Left Lobe: 4.8 x 1.8 x 1.5 cm Overall Parenchyma: heterogeneous Isthmus Thickness: 0.2 cm NODULES RIGHT: surgically absent LEFT: # of nodules measured on left: 1 2. 0.6 X 0.4 x 0.6 cm hypoechoic solid nodule at the mid pole with well-defined margins. This nodule is wider than tall and shows intranodular vascularity. Prior size: 0.6 x 0.3 x 0.6 cm ISTHMUS: # of nodules measured in the isthmus: 0 Bilateral neck scanned, no evidence of lymphadenopathy. IMPRESSION: Stable subcentimeter left thyroid nodule. Postsurgical changes seen with previous right lobectomy. He terogeneous left thyroid tissue suggestive of thyroiditis.
== END | disposition home or self-care (01) ==
LOC: RADUSWWP 09:10
PROVIDERS: ATTEND Family Medicine
DX: E04.2 Nontoxic multinodular goiter (principal)
CPT/HCPCS: 76536

== ENCOUNTER → 2019-04-25 | Outpatient (CLI) | payer MEDICARE ==
--- NOTE | 2019-04-25 13:31 | CT ---
EXAMINATION TYPE: CT sinus wo con DATE OF EXAM: 04/25/2019 COMPARISON: None HISTORY: sinusitis CT DLP: 599 mGycm CONTRAST: 0 mL of Isovue 300 The paranasal sinuses are examined in the axial plane at 2 mm thick sections. Reconstructed images i n the coronal plane were obtained. There is dental amalgam scatter artifact The maxillary sinuses are clear. The ethmoid air cells are clear. The sphenoid sinuses are clear. The frontal sinuses are clear. The septum is evaluated. There is septal deviation to the right. The ostiomeatal units are patent. IMPRESSIONS: 1. Mild right septal deviation.
== END | disposition home or self-care (01) ==
LOC: RADCTMAIN 08:16
PROVIDERS: ATTEND Otolaryngology
DX: J34.2 Deviated nasal septum (principal); J32.9 Chronic sinusitis, unspecified
CPT/HCPCS: 70486

== ENCOUNTER → 2019-05-25 | Outpatient (CLI) | payer MEDICARE ==
--- NOTE | 2019-05-25 11:08 | US ---
EXAMINATION TYPE: US thyroid st tissue head/neck DATE OF EXAM: 05/25/2019 COMPARISON: US 11/18/2018 CLINICAL HISTORY: E04.2 nontoxic multinodular goiter. Follow up thyroid nodule, history of right thyr oidectomy. GLAND SIZE: Right Lobe: surgically absent Left Lobe: 4.8 x 1.6 x 1.5 cm Overall Parenchyma: heterogeneous Isthmus Thickness: 0.2 cm NODULES RIGHT: surgically absent LEFT: # of nodules measured on left: 2 1. 0.5 X 0.3 x 0.6 cm hypoechoic solid nodule at the mid pole with well-defined margins. This nodul e is wider than tall and shows intranodular vascularity. Prior size: 0.6 x 0.4 x 0.6 cm 2. 0.9 X 0.6 x 0.9 cm hypoechoic solid nodule at the lower pole with well-defined margins. This nodu le is wider than tall and shows intranodular vascularity. Prior size: no previous ISTHMUS: # of nodules measured in the isthmus: 0 Bilateral neck scanned, no evidence of lymphadenopathy. IMPRESSION: 1. Surgical absence of the right thyroid lobe. 2. The prior subcentimeter left thyroid nodule seen on the exam of 11/18/2018 is similar in size to th e prior with an additional 0.9 cm nodule now seen on the left. Continued surveillance is recommended.
== END | disposition home or self-care (01) ==
LOC: RADUSWWP 09:37
PROVIDERS: ATTEND Family Medicine
DX: E04.2 Nontoxic multinodular goiter (principal); E89.0 Postprocedural hypothyroidism
CPT/HCPCS: 76536

== ENCOUNTER → 2019-07-22 | Outpatient (CLI) | payer MEDICARE ==
[2019-07-22 08:39] LABS: HGB 14.8 gm/dL (11.4-16.0); MCH 31.7 pg (25.0-35.0); MCHC 32.8 g/dL (31.0-37.0); MCV 96.5 fL (80.0-100.0); Mean Platelet Volume 8.5; Platelet Count 151 k/uL (150-450); RBC 4.66 m/uL (3.80-5.40); RDW 12.4 % (11.5-15.5); WBC 5.3 k/uL (3.8-10.6)
[2019-07-22 18:08] LABS: Albumin 4.5 g/dL (3.80-4.90); Anion Gap 7.5 mmol/L (4.00-12.00); Calcium 9.6 mg/dL (8.7-10.3); Carbon Dioxide 29.5 mmol/L (21.6-31.8); Globulin 1.5 g/dL (1.6-3.3); Magnesium 2.1 mg/dL (1.5-2.4); Non-African American GFR(CKD) 59.5 (60.0-200.0); Phosphorus 3.4 mg/dL (2.4-5.1); Potassium 4.5 mmol/L (3.5-5.5); Total Bilirubin 0.5 mg/dL (0.3-1.2); Uric Acid 6.3 mg/dL (2.9-7.7)
== END | disposition home or self-care (01) ==
LOC: LABWHC1 07:47
PROVIDERS: ATTEND Family Medicine
DX: E55.9 Vitamin D deficiency, unspecified (principal); I10 Essential (primary) hypertension
CPT/HCPCS: 36415; 80053; 82306; 83735; 83970; 84100; 84550; 85027

== ENCOUNTER → 2019-08-26 | Outpatient (CLI) | payer MEDICARE ==
--- NOTE | 2019-08-26 15:56 | US ---
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 Follow up thyroid nodules, right thyroidectomy. GLAND SIZE: Left Lobe: 4.5 x 1.3 x 1.5 cm Overall Parenchyma: heterogeneous Isthmus Thickness: 0.3 cm NODULES RIGHT: surgically absent LEFT: # of nodules measured on left: 2 1. 0.6 X 0.3 x 0.5 cm hypoechoic solid nodule at the medial mid pole with well-defined margins. Thi s nodule is wider than tall and shows intranodular vascularity. Prior size: 0.5 x 0.3 x 0.6 cm 2. 0.9 X 0.6 x 0.9 cm hypoechoic solid nodule at the lateral lower pole with well-defined margins. T his nodule is wider than tall and shows intranodular vascularity. Prior size: 0.9 x 0.6 x 0.9 cm ISTHMUS: # of nodules measured in the isthmus: 0 Bilateral neck scanned, no evidence of lymphadenopathy. IMPRESSION: 1. Subcentimeter thyroid nodules left lobe thyroid. 2. No recurrent masses right thyroid bed
== END | disposition home or self-care (01) ==
LOC: RADUSWWP 09:20
PROVIDERS: ATTEND Family Medicine
DX: E04.2 Nontoxic multinodular goiter (principal)
CPT/HCPCS: 76536

== ENCOUNTER → 2020-01-16 | Outpatient (CLI) | payer MEDICARE ==
[2020-01-16 12:28] LABS: Basophils # (A) 0.1 k/uL (0-0.2); Basophils % (A) 1 %; Eosinophils # (A) 0.1 k/uL (0-0.7); Eosinophils % (A) 2 %; HCT 43.4 % (34.0-46.0); HGB 14.7 gm/dL (11.4-16.0); Lymphocytes # (A) 1.3 k/uL (1.0-4.8); Lymphocytes % (A) 23 %; MCHC 33.9 g/dL (31.0-37.0); MCV 97.2 fL (80.0-100.0); Monocytes # (A) 0.3 k/uL (0-1.0); Monocytes % (A) 6 %; Neutrophils # (A) 3.7 k/uL (1.3-7.7); Neutrophils % (A) 67 %; Platelet Count 144 k/uL (150-450); RBC 4.46 m/uL (3.80-5.40); RDW 12.6 % (11.5-15.5); WBC 5.5 k/uL (3.8-10.6)
[2020-01-16 17:29] LABS: Hemoglobin A1C 5.7 % (4.0-6.0)
[2020-01-16 20:16] LABS: Anion Gap 7.9 mmol/L (4.00-12.00); BUN/Creat Ratio 22.22 Ratio (12.00-20.00); Calcium 9.7 mg/dL (8.7-10.3); Carbon Dioxide 27.1 mmol/L (21.6-31.8); Chol/HDL Ratio 4.33; LDL Cholesterol,Calculated 141.8 mg/dL (0.0-131.0); Non-African American GFR(CKD) 59.5 (60.0-200.0); Potassium 4.4 mmol/L (3.5-5.5); VLDL Calculation 21.2 mg/dL (5.00-40.00)
[2020-01-16 20:24] LABS: T4, Free (Free Thyroxine) 1.1 ng/dL (0.80-1.80)
== END | disposition home or self-care (01) ==
LOC: LABWHC1 10:58
PROVIDERS: ATTEND Family Medicine
DX: N18.3 Chronic kidney disease, stage 3 (moderate) (principal); E78.00 Pure hypercholesterolemia, unspecified; E04.2 Nontoxic multinodular goiter; E55.9 Vitamin D deficiency, unspecified; E66.3 Overweight; R79.9 Abnormal finding of blood chemistry, unspecified
CPT/HCPCS: 36415; 80048; 80061; 82306; 83036; 84439; 84443; 85025

== ENCOUNTER → 2020-01-17 | Outpatient (CLI) | payer MEDICARE ==
--- NOTE | 2020-01-18 14:56 | MM ---
Reason for exam: screening (asymptomatic). Last mammogram was performed 1 year and 2 months ago. History: Patient is postmenopausal and history of other cancer. Family history of breast cancer in maternal aunt and breast cancer in paternal aunt. Benign stereotactic core biopsy of the left breast, February 14, 2002. Core biopsy of the left breast. 4 excisional biopsies of the left breast. 2 excisional biopsies of the right breast. Took estrogen for 2 years beginning at age 39. Physical Findings: A clinical breast exam by your physician is recommended on an annual basis and results should be correlated with mammographic findings. MG 3D Screening Mammo W/Cad Bilateral CC and MLO view(s) were taken. Prior study comparison: November 18, 2018, bilateral MG 3d screening mammo w/cad. November 11, 2017, bilateral MG 3d screening mammo w/cad. There are scattered fibroglandular densities. No significant changes when compared with prior studies. ASSESSMENT: Benign, BI-RAD 2 RECOMMENDATION: Routine screening mammogram of both breasts in 1 year.
== END | disposition home or self-care (01) ==
LOC: RADMAMWWP 15:52
PROVIDERS: ATTEND Obstetrics & Gynecology
DX: Z12.31 Encounter for screening mammogram for malignant neoplasm of breast (principal)
CPT/HCPCS: 77063; 77067

== ENCOUNTER → 2020-02-28 | Outpatient (CLI) | payer MEDICARE ==
--- NOTE | 2020-02-28 14:29 | US ---
EXAMINATION TYPE: US thyroid st tissue head/neck DATE OF EXAM: 02/28/2020 COMPARISON: US CLINICAL HISTORY: E04.2 Nontoxic multinodular goiter. GLAND SIZE: Right Lobe: surgically removed Left Lobe: 4.7 x 1.4 x 1.9 cm Overall Parenchyma: heterogeneous Isthmus Thickness: 0.4 cm NODULES RIGHT: no discreet thyroid tissue is seen at area of thyroidectomy LEFT: # of nodules measured on left: 2 largest of multiple nodules 1. 0.6 X 0.5 x 0.3 cm hypoechoic mixed nodule at the mid medial pole with well-defined margins. Th is nodule is wider than tall and shows no intranodular vascularity. Prior size: 0.6 x 0.3 x 0.5 cm 2. 0.6 X 0.6 x 0.5 cm hypoechoic solid nodule at the lower pole with poorly defined margins. This n odule is wider than tall and shows no intranodular vascularity. Prior size: 0.9 x 0.6 x 0.9 cm ISTHMUS: # of nodules measured in the isthmus: 0 Bilateral neck scanned: no evidence of lymphadenopathy. IMPRESSION: Nonspecific thyroid nodularity as discussed above.
== END | disposition home or self-care (01) ==
LOC: RADUSWWP 13:38
PROVIDERS: ATTEND Family Medicine
DX: E04.2 Nontoxic multinodular goiter (principal)
CPT/HCPCS: 76536

== ENCOUNTER → 2020-07-31 | Outpatient (CLI) | payer MEDICARE ==
[2020-07-31 15:52] LABS: Appearance,Urine Clear (Clear); Bacteria,Urine Many /hpf; Bilirubin,Urine Negative (Negative); Blood,Urine Small (Negative); Color,Urine Light Yellow; Glucose,Urine (UA) Negative (Negative); Ketones,Urine Negative (Negative); Leukocyte Esterase,Urine Moderate (Negative); Mucus,Urine Rare /hpf; Nitrite,Urine Negative (Negative); Protein,Urine Negative (Negative); RBC,Urine 6 /hpf (0-5); Specific Gravity,Urine 1.011 (1.001-1.035); Squamous Epithelial Cell,Urine 2 /hpf (0-4); Urobilinogen,Urine <2.0 mg/dL (<2.0); WBC,Urine 16 /hpf (0-5)
[2020-07-31 16:00] LABS: Basophils # (A) 0.1 k/uL (0-0.2); Basophils % (A) 1 %; Eosinophils # (A) 0.2 k/uL (0-0.7); Eosinophils % (A) 4 %; HCT 43.8 % (34.0-46.0); HGB 14.4 gm/dL (11.4-16.0); Lymphocytes # (A) 1.7 k/uL (1.0-4.8); Lymphocytes % (A) 28 %; MCH 31.5 pg (25.0-35.0); MCV 95.5 fL (80.0-100.0); Monocytes # (A) 0.4 k/uL (0-1.0); Monocytes % (A) 7 %; Neutrophils # (A) 3.5 k/uL (1.3-7.7); Neutrophils % (A) 59 %; Platelet Count 165 k/uL (150-450); RBC 4.59 m/uL (3.80-5.40); RDW 12.5 % (11.5-15.5); WBC 5.9 k/uL (3.8-10.6)
[2020-08-01 05:50] LABS: African American GFR (CKD) 68.5 (60.0-200.0); Anion Gap 10.9 mmol/L (4.00-12.00); BUN/Creat Ratio 25.56 Ratio (12.00-20.00); Calcium 9.9 mg/dL (8.7-10.3); Carbon Dioxide 28.1 mmol/L (21.6-31.8); Non-African American GFR(CKD) 59.1 (60.0-200.0); Potassium 4.1 mmol/L (3.5-5.5)
== END | disposition home or self-care (01) ==
LOC: LABWHC1 15:26
PROVIDERS: ATTEND Family Medicine
DX: Z00.01 Encounter for general adult medical examination with abnormal findings (principal); N18.30 Chronic kidney disease, stage 3 unspecified
CPT/HCPCS: 36415; 80048; 81001; 82150; 82306; 83690; 84443; 84450; 84460; 85025

== ENCOUNTER → 2020-08-09 | Outpatient (CLI) | payer MEDICARE ==
--- NOTE | 2020-08-09 09:56 | FL ---
EXAMINATION TYPE: FL UGI air w esophagus DATE OF EXAM: 08/09/2020 CLINICAL HISTORY: GERD per order. Epigastric pain with tongue and lip numbness. TECHNIQUE: A double contrast UGI study is performed. 51 second of fluoro time and 44 images obtaine d. COMPARISON: None FINDINGS: [employer] image of the abdomen shows no gross abnormality. Cholecystectomy clips noted. The esophagus shows mild dysmotility with some abnormal secondary and tertiary contractions. Small sl iding-type hiatal hernia. No stricture noted. No intraluminal mass. The stomach shows satisfactory distensibility. There is focal moderate fundal gastritis . No focal ul cer disease. Moderate gastroesophageal reflux into distal one half of the esophagus was seen during r eal time performance of this study. The duodenal bulb, sweep, and proximal small bowel loops are unremarkable. IMPRESSION: Moderate focal fundal gastritis. Moderate gastroesophageal reflux. Small sliding type hia bernabe hernia. Mild underlying esophageal dysmotility.
== END | disposition home or self-care (01) ==
LOC: RADFLMAIN 07:54
PROVIDERS: ATTEND Family Medicine
DX: K21.9 Gastro-esophageal reflux disease without esophagitis (principal); K29.70 Gastritis, unspecified, without bleeding; K44.9 Diaphragmatic hernia without obstruction or gangrene; K22.4 Dyskinesia of esophagus
CPT/HCPCS: 74246

== ENCOUNTER → 2020-08-10 | Outpatient (CLI) | payer MEDICARE ==
--- NOTE | 2020-08-10 14:55 | US ---
EXAMINATION TYPE: US thyroid st tissue head/neck DATE OF EXAM: 08/10/2020 COMPARISON: 02/28/2020 CLINICAL HISTORY: E04.2 nontoxic multinodular goiter. Thyroid nodules right gland removed GLAND SIZE: Right Lobe: Surgically absent cm Left Lobe: 6.3 x 2.2 x 2.0 cm Overall Parenchyma: heterogeneous Isthmus Thickness: .4 cm NODULES RIGHT: # of nodules measured on right: 0 LEFT: # of nodules measured on left: 2 1. .7 X .4 x .9 cm solid or almost completely solid, hypoechoic nodule, which is wider than tall, w ith ill-defined margins, without echogenic foci. Prior size: .9 x .6 x .9 cm 2. .6 X .3 x .5 cm solid or almost completely solid, hypoechoic nodule, which is wider than tall, w ith smooth margins, without echogenic foci. Prior size: .6 x .3 x .5 cm ISTHMUS: # of nodules measured in the isthmus: 0 Bilateral neck scanned, no evidence of lymphadenopathy. IMPRESSION: Nonspecific solid nodularity.
== END | disposition home or self-care (01) ==
LOC: RADUSWWP 13:24
PROVIDERS: ATTEND Family Medicine
DX: E04.2 Nontoxic multinodular goiter (principal)
CPT/HCPCS: 76536

== ENCOUNTER → 2021-01-22 | Outpatient (CLI) | payer MEDICARE ==
--- NOTE | 2021-01-22 09:37 | BD ---
EXAMINATION TYPE: Axial Bone Density DATE OF EXAM: 01/22/2021 COMPARISON: NONE CLINICAL HISTORY: Postmenopausal Height: 64 Weight: 163.3 FRAX RISK QUESTIONS: Alcohol (3 or more units per day): no Family History (Parent hip fracture): no Glucocorticoids (More than 3mos): no (Ex: prednisone, prednisolone, methylprednisolone, dexamethasone, and hydrocortisone). History of Fracture in Adulthood: no Secondary Osteoporosis: 1. Type 1 Diabetes: no 2. Hyperthyroidism: no 3. Menopause before 45: yes 4. Malnutrition: no 5. Chronic liver disease: no Rheumatoid Arthritis: no Current Tobacco Use: no RISK FACTORS HISTORY OF: Surgery to Spine/Hip(right/left)/Wrist (right/left): no Family History of Osteoporosis: no Active: yes Diet low in dairy products/other sources of calcium: yes Postmenopausal woman: hysterectomy age 39 Lost more than 2 inches in height since high school: no MEDICATIONS: none Additional History: EXAM MEASUREMENTS: Bone mineral densitometry was performed using the Navut System. Bone mineral density as measured about the Lumbar spine is: ----- L1-L4(G/cm2): 1.211 T Score Values are as follows: ----- L2: 0.5 ----- L3: 1.0 ----- L4: 0.0 ----- L1-L4: 0.3 Bone mineral density has: increased 3.4 % since study of: 11.18.2018 Bone mineral density about the R hip (g/cm2): 0.740 Bone mineral density about the L hip (g/cm2): 0.731 T Score values are as follows: -----R Neck: -2.1 -----L Neck: -2.2 -----R Total: -1.7 -----L Total: -1.8 Bone mineral density has: decreased -0.6 % since study of: 11.18.2018 IMPRESSION: Osteopenia. NOTE: T-SCORE=SD OF THE YOUNG ADULT MEAN.
--- NOTE | 2021-01-22 13:10 | MM ---
Reason for exam: screening (asymptomatic). Last mammogram was performed 1 year ago. History: Patient is postmenopausal and has history of other cancer at age 72. Family history of breast cancer in maternal aunt and breast cancer in paternal aunt. Benign stereotactic core biopsy of the left breast, February 14, 2002. Core biopsy of the left breast. 4 excisional biopsies of the left breast. 2 excisional biopsies of the right breast. Took estrogen for 2 years beginning at age 39. Physical Findings: A clinical breast exam by your physician is recommended on an annual basis and results should be correlated with mammographic findings. MG 3D Screening Mammo W/Cad Bilateral CC and MLO view(s) were taken. Prior study comparison: January 17, 2020, bilateral MG 3d screening mammo w/cad. November 18, 2018, bilateral MG 3d screening mammo w/cad. There are scattered fibroglandular densities. Left biopsy clip. ASSESSMENT: Negative, BI-RAD 1 RECOMMENDATION: Routine screening mammogram of both breasts in 1 year.
== END | disposition home or self-care (01) ==
LOC: RADMAMWWP 08:17
PROVIDERS: ATTEND Obstetrics & Gynecology
DX: Z12.31 Encounter for screening mammogram for malignant neoplasm of breast (principal); Z78.0 Asymptomatic menopausal state; Z80.3 Family history of malignant neoplasm of breast
CPT/HCPCS: 77063; 77067; 77080

== ENCOUNTER → 2021-01-29 | Outpatient (CLI) | payer MEDICARE ==
[2021-01-29 14:48] LABS: Basophils # (A) 0.05 X 10*3/uL (0.00-0.10); Basophils % (A) 0.8 %; Eosinophils # (A) 0.11 X 10*3/uL (0.04-0.35); Eosinophils % (A) 1.8 %; HCT 43.7 % (37.2-46.3); HGB 14.3 g/dL (12.0-15.0); Lymphocytes # (A) 1.09 X 10*3/uL (0.90-5.00); MCH 32.6 pg (27.0-32.0); MCHC 32.7 g/dL (32.0-37.0); MCV 99.5 fL (80.0-97.0); Mean Platelet Volume 11.7 fL (9.5-12.2); Monocytes % (A) 8.3 %; Neutrophils # (A) 4.29 X 10*3/uL (1.80-7.70); Neutrophils % (A) 70.8 %; Platelet Count 173 X 10*3/uL (140-440); RBC 4.39 X 10*6/uL (4.10-5.20); RDW 12.4 % (11.5-14.5); WBC 6.06 X 10*3/uL (4.50-10.00)
[2021-01-29 17:20] LABS: African American GFR (CKD) 68.5 (60.0-200.0); Anion Gap 9.8 mmol/L (4.00-12.00); Calcium 9.6 mg/dL (8.7-10.3); Carbon Dioxide 27.2 mmol/L (21.6-31.8); Chol/HDL Ratio 3.96; LDL Cholesterol,Calculated 132.4 mg/dL (0.0-131.0); Non-African American GFR(CKD) 59.1 (60.0-200.0); Potassium 4.3 mmol/L (3.5-5.5); VLDL Calculation 12.6 mg/dL (5.00-40.00)
== END | disposition home or self-care (01) ==
LOC: LABWHC1 09:27
PROVIDERS: ATTEND Family Medicine
DX: E04.2 Nontoxic multinodular goiter (principal); N18.30 Chronic kidney disease, stage 3 unspecified; E78.00 Pure hypercholesterolemia, unspecified; E55.9 Vitamin D deficiency, unspecified
CPT/HCPCS: 36415; 80048; 80061; 82306; 84443; 84450; 84460; 85025

== ENCOUNTER → 2021-02-13 | Outpatient (CLI) | payer MEDICARE ==
--- NOTE | 2021-02-14 08:45 | US ---
EXAMINATION TYPE: US thyroid st tissue head/neck DATE OF EXAM: 02/13/2021 COMPARISON: 08/10/2020 CLINICAL HISTORY: 85-year-old female E04.2 MULTINODULAR GOITER. GLAND SIZE: Right Lobe: Surgically absent. Difficult to exclude a 1.2 cm nodular focus of homogeneous thyroid tis renato in the right thyroidectomy bed. Retrospective review shows a similar finding on 08/10/2020. Left Lobe: 4.6 x 1.5 x 1.5 cm Overall Parenchyma: heterogeneous Isthmus Thickness: 0.3 cm NODULES RIGHT: # of nodules measured on right: 0 LEFT: # of nodules measured on left: 2 1. 0.7X 0.3 x 0.5 cm, mid , mostly cystic nodule which is wider than tall, with smooth margins, wit hout echogenic foci, likely colloid cyst. Prior size: 0.7 x 0.4 x 0.9 cm 2. 0.9 X 0.5 x 0.9 cm, mid , solid or almost completely solid, hypoechoic nodule, which is wider t jaramillo tall, with ill-defined margins, without echogenic foci. Prior size: 0.6 x 0.6 x 0.6 cm ISTHMUS: # of nodules measured in the isthmus: 0 Bilateral neck scanned, no evidence of lymphadenopathy. IMPRESSION: 1. Left sided 9 mm TR4 solid nodule is slightly larger compared to 6 mm, previously. Continued follow -up recommended. FNA if it reaches 1.5 cm. 2. Possible 1.2 cm focus of regenerative thyroid tissue in the right thyroidectomy bed. Retrospective review shows a similar appearance on 08/10/2020. Attention on follow-up.
== END | disposition home or self-care (01) ==
LOC: RADUSWWP 16:10
PROVIDERS: ATTEND Family Medicine
DX: E04.2 Nontoxic multinodular goiter (principal)
CPT/HCPCS: 76536

== ENCOUNTER → 2021-03-29 | Outpatient (CLI) | payer MEDICARE ==
[2021-03-29 19:04] LABS: Basophils # (A) 0.04 X 10*3/uL (0.00-0.10); Basophils % (A) 0.8 %; Eosinophils % (A) 1.9 %; HCT 43.5 % (37.2-46.3); HGB 14.3 g/dL (12.0-15.0); Lymphocytes # (A) 1.28 X 10*3/uL (0.90-5.00); Lymphocytes % (A) 24.4 %; MCH 32.7 pg (27.0-32.0); MCHC 32.9 g/dL (32.0-37.0); MCV 99.5 fL (80.0-97.0); Mean Platelet Volume 11.8 fL (9.5-12.2); Monocytes # (A) 0.45 X 10*3/uL (0.20-1.00); Monocytes % (A) 8.6 %; Neutrophils # (A) 3.36 X 10*3/uL (1.80-7.70); Neutrophils % (A) 64.1 %; Platelet Count 174 X 10*3/uL (140-440); RBC 4.37 X 10*6/uL (4.10-5.20); WBC 5.24 X 10*3/uL (4.50-10.00)
[2021-03-29 22:44] LABS: African American GFR (CKD) 68.5 (60.0-200.0); Anion Gap 7.7 mmol/L (4.00-12.00); Calcium 9.9 mg/dL (8.7-10.3); Carbon Dioxide 29.3 mmol/L (21.6-31.8); Non-African American GFR(CKD) 59.1 (60.0-200.0); Potassium 5.1 mmol/L (3.5-5.5)
== END | disposition home or self-care (01) ==
LOC: LABWHC1 11:09
PROVIDERS: ATTEND Family Medicine
DX: G60.9 Hereditary and idiopathic neuropathy, unspecified (principal); Z77.098 Contact with and (suspected) exposure to other hazardous, chiefly nonmedicinal, chemicals
CPT/HCPCS: 36415; 80048; 82150; 82607; 83690; 85025

== ENCOUNTER → 2021-07-02 | Outpatient (CLI) | payer MEDICARE ==
--- NOTE | 2021-07-02 18:18 | CT ---
EXAMINATION TYPE: CT brain w con DATE OF EXAM: 07/02/2021 COMPARISON: 08/29/2016 HISTORY: MEMORY CHANGES CT DLP: 1036 mGycm Automated exposure control for dose reduction was used. CONTRAST: CT scan of the head is performed with IV Contrast, patient injected with 100 mL of Isovue 300. FINDINGS: There is no abnormal enhancing mass or midline shift identified. The ventricles and sulci are within normal limits in size. The globes are intact and the visualized sinuses are clear. IMPRESSION: Negative contrast enhanced head CT exam.
== END | disposition home or self-care (01) ==
LOC: RADCTMAIN 15:30
PROVIDERS: ATTEND Family Medicine
DX: R41.3 Other amnesia (principal)
CPT/HCPCS: 82565; 84520; 70460; 36415; Q9967

== ENCOUNTER → 2021-12-16 | Outpatient (CLI) | payer MEDICARE ==
[2021-12-16 18:50] LABS: Urine Alcohol Negative (Negative); Urine Barbiturate Negative (Negative); Urine Cocaine Negative (Negative); Urine Methadone Negative (Negative); Urine Opiates Negative (Negative); Urine Phencyclidine Negative (Negative)
== END | disposition home or self-care (01) ==
LOC: LABWHC1 11:15
PROVIDERS: ATTEND Family Medicine
DX: Z79.899 Other long term (current) drug therapy (principal)
CPT/HCPCS: 36415; 80306; 82175; 82570; 83655; 83825

== ENCOUNTER → 2022-01-23 | Outpatient (CLI) | payer MEDICARE ==
--- NOTE | 2022-01-24 08:03 | MM ---
Reason for Exam: Screening (asymptomatic). Last screening mammogram was performed 12 month(s) ago. Patient History: Menarche at age 15. First Full-Term at age 27. Left ovary removed at age 39. Right ovary removed at age 39. Hysterectomy at age 39. Postmenopausal. Estrogen for 2 years from age 39 until age 41. Core Biopsy on the Left side. Excisional Biopsy on the Right side. Excisional Biopsy on the Right side. Excisional Biopsy on the Left side. Excisional Biopsy on the Left side. Excisional Biopsy on the Left side. Excisional Biopsy on the Left side. 02/14/2002, Benign Stereotactic Core Biopsy on the left side. Paternal aunt had breast cancer. Maternal aunt had breast cancer at or over age 50. Risk Values: Zoya 5 year model risk: 2.3%. NCI Lifetime model risk: 2.6%. Prior Study Comparison: 11/18/2018 Bilateral Screening Mammogram, [facility]. 01/17/2020 Bilateral Screening Mammogram, [facility]. 01/22/2021 Bilateral Screening Mammogram, [facility]. Tissue Density: The breast tissue is heterogeneously dense. This may lower the sensitivity of mammography. Findings: Analyzed By CAD. There is no suspicious group of microcalcifications or new suspicious mass in either breast. Overall Assessment: Benign, BI-RAD 2 Management: Screening Mammogram of both breasts in 1 year. A clinical breast exam by your physician is recommended on an annual basis and results should be correlated with mammographic findings. Electronically signed and approved by: Orville Peck M.D. Radiologis
== END | disposition home or self-care (01) ==
LOC: RADMAMWWP 09:00
PROVIDERS: ATTEND Obstetrics & Gynecology
DX: Z12.31 Encounter for screening mammogram for malignant neoplasm of breast (principal); Z78.0 Asymptomatic menopausal state; Z80.3 Family history of malignant neoplasm of breast
CPT/HCPCS: 77063; 77067

== ENCOUNTER 2022-11-26 10:44 | Inpatient (IN) | payer MEDICARE ==
[2022-11-26] MEDS ORDERED: ONDANSETRON 4 MG/2 ML VIAL IVP STA (11:27)
[2022-11-26] MEDS ORDERED: SODIUM CHLORIDE 0.9% 1,000 ML IV ONE (11:28)
[2022-11-26 12:11] LABS: Basophils % (A) 1 %; Eosinophils # (A) 0.1 k/uL (0-0.7); Eosinophils % (A) 2 %; HCT 45.7 % (34.0-46.0); HGB 15.3 gm/dL (11.4-16.0); Lymphocytes # (A) 1.6 k/uL (1.0-4.8); Lymphocytes % (A) 26 %; MCH 31.4 pg (25.0-35.0); MCHC 33.5 g/dL (31.0-37.0); MCV 93.8 fL (80.0-100.0); Mean Platelet Volume 8.5; Monocytes # (A) 0.4 k/uL (0-1.0); Monocytes % (A) 7 %; Neutrophils % (A) 64 %; Platelet Count 163 k/uL (150-450); RBC 4.88 m/uL (3.80-5.40); WBC 6.2 k/uL (3.8-10.6)
[2022-11-26 12:14] LABS: Appearance,Urine Clear (Clear); Bilirubin,Urine Negative (Negative); Blood,Urine Negative (Negative); Color,Urine Colorless; Glucose,Urine (UA) Negative (Negative); Ketones,Urine Negative (Negative); Leukocyte Esterase,Urine Negative (Negative); Nitrite,Urine Negative (Negative); PH, Urine 7.5 (5.0-8.0); Protein,Urine Negative (Negative); Specific Gravity,Urine 1.003 (1.001-1.035); Urobilinogen,Urine <2.0 mg/dL (<2.0)
[2022-11-26 12:20] LABS: ALT 21 U/L (4-34); AST 29 U/L (14-36); African American GFR (CKD) 66 (>60 ml/min/1.73 sqM); Albumin 4.6 g/dL (3.5-5.0); Alkaline Phosphatase 88 U/L (38-126); Anion Gap 10 mmol/L; Blood Urea Nitrogen 23 mg/dL (7-17); Calcium 9.7 mg/dL (8.4-10.2); Carbon Dioxide 28 mmol/L (22-30); Chloride 105 mmol/L (98-107); Glucose 103 mg/dL (74-99); Magnesium 2.2 mg/dL (1.6-2.3); Non-African American GFR(CKD) 57 (>60 ml/min/1.73 sqM); Potassium 3.8 mmol/L (3.5-5.1); Sodium 143 mmol/L (137-145); Total Bilirubin 0.9 mg/dL (0.2-1.3); Total Protein 7.4 g/dL (6.3-8.2)
--- NOTE | 2022-11-26 12:30 | XR ---
EXAMINATION TYPE: XR chest 2V DATE OF EXAM: 11/26/2022 COMPARISON: Chest x-ray August 28, 2018 HISTORY: Chest pain. TECHNIQUE: Frontal and lateral views of the chest are obtained. FINDINGS: Overlying EKG leads are redemonstrated. There is no focal air space opacity, pleural effusi on, or pneumothorax seen. The cardiac silhouette size is stable and within normal limits. Cholecys tectomy clips are redemonstrated. The osseous structures remain demineralized. IMPRESSION: No acute cardiopulmonary process. No significant change from prior.
[2022-11-26 12:37] LABS: INR 0.9 (<1.2); Partial Thromboplastin Time 23.1 sec (22.0-30.0); Prothrombin Time 10.1 sec (9.0-12.0)
[2022-11-26] MEDS ORDERED: PANTOPRAZOLE 40 MG/10 ML VIAL IVP STA (14:58)
[2022-11-26] MEDS ORDERED: MAG HYDROX/AL HYDROX/SIMETH 30 ML, HYOSCYAMINE ELIXIR 10 ML, LIDOCAINE 2% GLYDO JELLY 1... PO STA ×3 (14:59)
[2022-11-26] MEDS ORDERED: NALOXONE 0.4 MG/ML 1 ML VIAL IV PRN (14:59)
--- NOTE | 2022-11-26 15:05 | ED ---
Chest Pain HPI - General Chief Complaint: Chest Pain Stated Complaint: possible signs of heart attack Time Seen by Provider: 11/26/22 10:59 Source: patient Mode of arrival: wheelchair Limitations: physical limitation - History of Present Illness Initial Comments: 87-year-old female with past medical history of your disease who presents to emergency department reporting chest pain. States that it started this morning after she went out to drink coffee with friends. He described a burning sensation in the center of her chest. Had associated shakiness, nausea, dizziness and states that she "just doesn't feel right". No ripping or tearing sensation to her back. Does admit to mild shortness of breath. No history of coronary disease. Symptoms are slightly improved upon arrival. No medication changes. Denies headache or visual changes. She did not sent to take any medications for her symptoms. No other alleviating, precipitating or modifying factors - Related Data Home Medications Medication Instructions Recorded Confirmed Cephalexin [Keflex] 250 mg PO BID 11/26/22 11/26/22 Mupirocin 2% Oint [Bactroban 2% 1 applic TOPICAL BID 11/26/22 11/26/22 Oint] amLODIPine [Norvasc] 5 mg PO DAILY 11/26/22 11/26/22 hydroCHLOROthiazide 25 mg PO DAILY 11/26/22 11/26/22 Allergies Allergy/AdvReac Type Severity Reaction Status Date / Time codeine Allergy Rash/Hives Verified 11/26/22 13:46 Penicillins Allergy Rash/Hives Verified 11/26/22 13:46 Review of Systems ROS Statement: Those systems with pertinent positive or pertinent negative responses have been documented in the HPI. ROS Other: All systems not noted in ROS Statement are negative. EKG Findings - EKG Comments: EKG Findings:: EKG interpreted by myself demonstrates sinus rhythm with a rate of 70. LA interval 139. QRS 132. QTC of 463. 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 Absent: scleral icterus, conjunctival injection, periorbital swelling ENT exam: Present: normal exam, mucous membranes moist Neck exam: Present: normal inspection. Absent: tenderness, meningismus, lymphadenopathy Respiratory exam: Present: normal lung sounds bilaterally. Absent: respiratory distress, wheezes, rales, rhonchi, stridor Cardiovascular Exam: Present: regular rate, normal rhythm, normal heart sounds. Absent: systolic murmur, diastolic murmur, rubs, gallop, clicks GI/Abdominal exam: Present: soft, normal bowel sounds. Absent: distended, tenderness, guarding, rebound, rigid Extremities exam: Present: normal inspection, full ROM, normal capillary refill. Absent: tenderness, pedal edema, joint swelling, calf tenderness Back exam: Present: normal inspection Neurological exam: Present: alert, oriented X3, CN II-XII intact Psychiatric exam: Present: normal affect, normal mood Skin exam: Present: warm, dry, intact, normal color. Absent: rash Course Vital Signs 11/26/22 11/26/22 11/26/22 10:55 13:20 14:00 Temperature 98.2 F 98 F Pulse Rate 78 65 73 Respiratory 18 17 Rate Blood Pressure 152/78 147/85 147/85 O2 Sat by Pulse 97 96 91 L Oximetry 11/26/22 11/26/22 11/26/22 15:12 18:31 19:38 Temperature Pulse Rate 71 111 H 72 Respiratory 14 15 17 Rate Blood Pressure 158/71 158/71 148/68 O2 Sat by Pulse 98 95 96 Oximetry 11/26/22 20:00 Temperature Pulse Rate Respiratory 17 Rate Blood Pressure O2 Sat by Pulse Oximetry Chest Pain MDM - MDM Was pt. sent in by a medical professional or institution (, PA, SUBWAREHOUSE SUPERVISOR, urgent care, hospital, or alf...) When possible be specific @ -No Did you speak to anyone other than the patient for history (EMS, parent, family, police, friend...)? What history was obtained from this source @ -No Did you review nursing and triage notes (agree or disagree)? Why? @ -I reviewed and agree with nursing and triage notes Were old charts reviewed (outside hosp., previous admission, EMS record, old EKG, old radiological studies, urgent care reports/EKG's, alf records)? Report findings @ -No old charts were reviewed Differential Diagnosis (chest pain, altered mental status, abdominal pain women, abdominal pain men, vaginal bleeding, weakness, fever, dyspnea, syncope, headache, dizziness, GI bleed, back pain, seizure, CVA, palpatations, mental health, musculoskeletal)? @ -STEMI, NSTEMI, ACS, coronary vasospasm, gerd EKG interpreted by me (3pts min.). @ -yes, NSR X-rays interpreted by me (1pt min.). @ -yes, no acute process CT interpreted by me (1pt min.). @ -None done U/S interpreted by me (1pt. min.). @ -None done What testing was considered but not performed or refused? (CT, X-rays, U/S, labs)? Why? @ -None What meds were considered but not given or refused? Why? @ -None Did you discuss the management of the patient with other professionals (professionals i.e. , PA, SUBWAREHOUSE SUPERVISOR, lab, RT, psych nurse, foster care social worker, psychological examiner, teacher, photographic intelligence officer, case work aide)? Give summary @ -Dr. Cantu Was smoking cessation discussed for >3mins.? @ -No Was critical care preformed (if so, how long)? @ -No Were there social determinants of health that impacted care today? How? (Homelessness, low income, unemployed, alcoholism, drug addiction, transportation, low edu. Level, literacy, decrease access to med. care, [place] [facility], rehab)? @ -No Was there de-escalation of care discussed even if they declined (Discuss DNR or withdrawal of care, Hospice)? DNR status @ -No What co-morbidities impacted this encounter? (DM, HTN, Smoking, COPD, CAD, Cancer, CVA, ARF, Chemo, Hep., AIDS, mental health diagnosis, sleep apnea, morbid obesity)? @ -None Was patient admitted / discharged? Hospital course, mention meds given and route, prescriptions, significant lab abnormalities, going to OR and other pertinent info. @ -Upon arrival patient is placed into room 2. A thorough history and physical exam is performed. IV access is established and laboratory studies were conducted. Troponin is negative. Patient is given 4 mg of Zofran for nausea, 40 mg of Protonix and a GI cocktail. Results are discussed with the patient. Recommended admission in order to trend her troponins a consult cardiology for which she was agreeable. Patient's awaiting a bed on the floor in stable condition Undiagnosed new problem with uncertain prognosis? @ -yes Drug Therapy requiring intensive monitoring for toxicity (Heparin, Nitro, Insulin, Cardizem)? @ -No Were any procedures done? @ -No Diagnosis/symptom? @ -acute chest pain Acute, or Chronic, or Acute on Chronic? @ -acute Uncomplicated (without systemic symptoms) or Complicated (systemic symptoms)? @ -complicated Side effects of treatment? @ -No Exacerbation, Progression, or Severe Exacerbation? @ -No Poses a threat to life or bodily function? How? (Chest pain, [place], [place], pneumonia, PE, COPD, DKA, ARF, appy, cholecystitis, CVA, Diverticulitis, Homicidal, Suicidal, threat to staff... and all critical care pts) @ -Yes - chest pain can lead to cardiac ischemia and Disposition Clinical Impression: Chest pain Disposition: ADMITTED IP TO THIS HOSP Condition: Stable Is patient prescribed a controlled substance at d/c from ED?: No Time of Disposition: 15:04 Decision to Admit Reason: Admit from EC Decision Date: 11/26/22 Decision Time: 15:04
[2022-11-27] MEDS: amLODIPine 5 MG TAB PO SCH (08:00)
[2022-11-27] MEDS ORDERED: REGADENOSON 0.4 MG/5 ML SYRINGE IV PRN (08:42)
[2022-11-27] MEDS ORDERED: CAFFEINE CITRATE 60 MG/3 ML VIAL IV PRN (08:42)
[2022-11-27] MEDS ORDERED: AMINOPHYLLINE 500 MG/20 ML VIAL IV PRN (08:42)
--- NOTE | 2022-11-27 10:38 | P.CRDCN ---
History of Present Illness History of present illness: HISTORY OF PRESENT ILLNESS: This is a 87-year-old female with a past medical history significant for hypertension, and valvular heart disease including moderate MR and moderate AR. Patient follows in the office with Dr. Dr. Barraza. We have been asked to see the patient in consultation for chest pain. Patient examined at the bedside. Patient states that yesterday she began having some discomfort in her chest. She describes it as a burning sensation but not necessarily a pain. She states that she felt very shaky and her hands were tingling. She also reports having some dizziness. She states the pain lasted for a while but shortly after she came to the hospital that resolved. She denies any chest pain or pressure this morning. Denies shortness of breath. Vital signs are stable. * EKG reveals sinus mechanism with no signs of acute ischemia * Chest xray negative for acute process * Laboratory data: WBC 6.2. Hemoglobin 15.3. Platelet count 164. D-dimer 0.43. Sodium 143. Potassium 3.8. BUN 23. Creatinine 0.92. Negative 3. TSH 2.030. * Current home cardiac medications include Norvasc 5 mg daily and hydrochlorothiazide 25 mg daily * Most recent echocardiogram obtained in June 2021 revealed normal EF, moderate MR, moderate AR. * Patient underwent Lexiscan stress test in June 2019 which revealed reversible defect with small sized and mild intensity involving the inferior lateral wall of left ventricle. REVIEW OF SYSTEMS: At the time of my exam: CONSTITUTIONAL: Denies fever or chills. HEENT: Denies blurred vision, vision changes, or eye pain. Denies hemoptysis CARDIOVASCULAR: Denies chest pain. Denies orthopnea. Denies PND. Denies palpitations RESPIRATORY: Denies shortness of breath. GASTROINTESTINAL: Denies abdominal pain. Denies nausea or vomiting. HEMATOLOGIC: Denies bleeding disorders. GENITOURINARY: Denies any blood in urine. SKIN: Denies pruitis. Denies rash. PHYSICAL EXAM: VITAL SIGNS: Reviewed. GENERAL: Well-developed in no acute distress. HEENT: Head is normocephalic. Pupils are equal, round. Sclerae anicteric. Mucous membranes of the mouth are moist. Neck supple. No JVD or thyromegaly LUNGS: Respirations even and unlabored. Lungs essentially clear to auscultation bilaterally. HEART: Regular rate and rhythm. S1 and S2 heard. Systolic and diastolic murmur noted ABDOMEN: Soft. Nondistended. Nontender. EXTREMITIES: Normal range of motion. No clubbing or cyanosis. Peripheral pulses intact. No lower extremity edema NEUROLOGIC: Awake and alert. Oriented x 3. ASSESSMENT: Chest pain Valvular heart disease including moderate MR and moderate AR Hypertension PLAN: Acute coronary event has been ruled out Obtain 2-D echo to assess cardiac structure and function Resume home cardiac medications Patient undergo Lexiscan stress test today If negative, the patient may be discharged home today from a cardiac standpoint Nurse practitioner note has been reviewed by physician. Signing provider agrees with the documented findings, assessment, and plan of care. Past Medical History Past Medical History: No Reported History Additional Past Medical History / Comment(s): leaky aorta valve History of Any Multi-Drug Resistant Organisms: None Reported Past Surgical History: Hysterectomy, Orthopedic Surgery Additional Past Surgical History / Comment(s): cataract surgery, breast biopsies, surgery on 4th and 5th digits on left hand, partial thyroidectomy Past Anesthesia/Blood Transfusion Reactions: Postoperative Nausea & Vomiting (PONV) Additional Past Anesthesia/Blood Transfusion Reaction / Comment(s): Never had a blood transfusion. Past Psychological History: No Psychological Hx Reported Smoking Status: Never smoker Past Alcohol Use History: None Reported Past Drug Use History: None Reported Medications and Allergies Home Medications Medication Instructions Recorded Confirmed Type Cephalexin [Keflex] 250 mg PO BID 11/26/22 11/26/22 History Mupirocin 2% Oint [Bactroban 2% 1 applic TOPICAL BID 11/26/22 11/26/22 History Oint] amLODIPine [Norvasc] 5 mg PO DAILY 11/26/22 11/26/22 History hydroCHLOROthiazide 25 mg PO DAILY 11/26/22 11/26/22 History Allergies Allergy/AdvReac Type Severity Reaction Status Date / Time codeine Allergy Rash/Hives Verified 11/26/22 13:46 Penicillins Allergy Rash/Hives Verified 11/26/22 13:46 Physical Exam Vitals: Vital Signs Temp Pulse Pulse Resp BP BP Pulse Ox 11/27/22 07:05 97.6 F 55 L 18 143/72 97 11/27/22 01:38 97.7 F 58 L 16 139/80 96 11/26/22 20:33 97.8 F 63 16 146/63 98 11/26/22 20:00 17 11/26/22 19:38 72 17 148/68 96 11/26/22 18:31 111 H 15 158/71 95 11/26/22 15:12 71 14 158/71 98 11/26/22 14:00 73 17 147/85 91 L 11/26/22 13:20 98 F 65 147/85 96 11/26/22 10:55 98.2 F 78 18 152/78 97 Intake and Output 11/26/22 11/27/22 11/27/22 22:59 06:59 14:59 Other: Voiding Method Toilet # Voids 1 2 Weight 69.853 kg Results 11/26/22 11:17 11/26/22 11:17 Cardiac Enzymes 11/26/22 11/26/22 11/26/22 Range/Units 11:17 11:17 16:30 AST 29 (14-36) U/L Troponin I <0.012 <0.012 (0.000-0.034) ng/mL 11/26/22 Range/Units 19:30 AST (14-36) U/L Troponin I <0.012 (0.000-0.034) ng/mL Coagulation 11/26/22 Range/Units 11:17 PT 10.1 (9.0-12.0) sec APTT 23.1 (22.0-30.0) sec CBC 11/26/22 Range/Units 11:17 WBC 6.2 (3.8-10.6) k/uL RBC 4.88 (3.80-5.40) m/uL Hgb 15.3 (11.4-16.0) gm/dL Hct 45.7 (34.0-46.0) % Plt Count 163 (150-450) k/uL Comprehensive Metabolic Panel 11/26/22 Range/Units 11:17 Sodium 143 (137-145) mmol/L Potassium 3.8 (3.5-5.1) mmol/L Chloride 105 (98-107) mmol/L Carbon Dioxide 28 (22-30) mmol/L BUN 23 H (7-17) mg/dL Creatinine 0.92 (0.52-1.04) mg/dL Glucose 103 H (74-99) mg/dL Calcium 9.7 (8.4-10.2) mg/dL AST 29 (14-36) U/L ALT 21 (4-34) U/L Alkaline Phosphatase 88 (38-126) U/L Total Protein 7.4 (6.3-8.2) g/dL Albumin 4.6 (3.5-5.0) g/dL Current Medications Generic Name Dose Route Start Last Admin Trade Name Freq PRN Reason Stop Dose Admin Amlodipine Besylate 5 mg 11/27/22 09:00 11/27/22 08:00 Amlodipine 5 Mg Tab PO 5 mg DAILY RICHARD Administration Naloxone HCl 0.2 mg 11/26/22 14:59 Naloxone 0.4 Mg/Ml 1 Ml Vial IV Q2M PRN Opioid Reversal Intake and Output 11/26/22 11/27/22 11/27/22 22:59 06:59 14:59 Other: Voiding Method Toilet # Voids 1 2 Weight 69.853 kg 11/26/22 11:17 11/26/22 11:17
[2022-11-27 10:52] LABS: Basophils # (A) 0.05 X 10*3/uL (0.00-0.10); Basophils % (A) 0.9 %; Eosinophils # (A) 0.19 X 10*3/uL (0.04-0.35); Eosinophils % (A) 3.6 %; HCT 40.7 % (37.2-46.3); HGB 13.2 g/dL (12.0-15.0); Immature Grans, Automated 0 %; Lymphocytes # (A) 1.71 X 10*3/uL (0.90-5.00); Lymphocytes % (A) 32.4 %; MCH 31.2 pg (27.0-32.0); MCHC 32.4 g/dL (32.0-37.0); MCV 96.2 fL (80.0-97.0); Mean Platelet Volume 11.5 fL (9.5-12.2); Monocytes % (A) 11.4 %; NRBC Per 100 WBC 0 /100 WBCS (0.0-0.0); Neutrophils # (A) 2.73 X 10*3/uL (1.80-7.70); Neutrophils % (A) 51.7 %; Platelet Count 169 X 10*3/uL (140-440); RBC 4.23 X 10*6/uL (4.10-5.20); WBC 5.28 X 10*3/uL (4.50-10.00)
[2022-11-27 11:14] LABS: African American GFR (CKD) 57.4 (60.0-200.0); Anion Gap 8.9 mmol/L (10.00-18.00); BUN/Creat Ratio 22.43 Ratio (12.00-20.00); Blood Urea Nitrogen 23.1 mg/dL (9.0-27.0); Calcium 9.6 mg/dL (8.7-10.3); Non-African American GFR(CKD) 49.5 (60.0-200.0); Potassium 4.6 mmol/L (3.5-5.5)
--- NOTE | 2022-11-27 11:57 | NM ---
EXAMINATION TYPE: NM stress lexiscan cardiolite DATE OF EXAM: 11/27/2022 COMPARISON: NONE CLINICAL INDICATION: Female, 87 years old with history of CP; TECHNIQUE: After the intravenous administration of 9.47 mCi Tc 99m Sestamibi - Cardiolite resting SP ECT images acquired 65 minutes post injection. The patient received 0.4mg Lexiscan, 23.4 mCi Tc 99m Sestamibi - Stress images obtained [address] injection FINDINGS: Review of stress and rest SPECT images demonstrates no distinct perfusion abnormality. Gated analysi s shows normal wall motion with an estimated left ventricular ejection fraction of 66 %. However, TI D is abnormally increased at 1.35. IMPRESSION: TID is abnormally increased at 1.35. An elevated TID can be seen in the setting of acute, multivessel /global inducible ischemia. Further workup recommended. No focal areas of reversibility is seen.
[2022-11-27] MEDS ORDERED: ALPRAZolam 0.5 MG TAB PO PRN (13:04)
[2022-11-27] MEDS ORDERED: ALPRAZolam 0.25 MG TAB PO PRN (13:04)
[2022-11-27] MEDS ORDERED: NITROGLYCERIN SL TABS 0.4 MG TAB SUBLINGUAL PRN (13:04)
--- NOTE | 2022-11-27 19:49 | CA ---
Lexiscan Nuclear Stress Test Report Name: Tanvi Azul Exam Date: 11/27/2022 10:22 Exam Location: [facility] Stress Ht (in): 65 Wt (lb): 154 BSA: 1.77 Ordering Phys: Penelope Beck Referring Phys: GUY, Technologist: Alfred Silva Age: 87 Gender: F : 1935 Procedure CPT: Indications: Reflex order-Stress test ICD-10 Codes: Patient History: Medications: SEE CHART Meds past 24 hrs: Pretest Chest Pain: STRESS TEST Lexiscan Protocol Exercise Duration (min:sec): 02:[address] Depressions (mm): Angina Score: Kline Score: Resting HR (bpm): 61 Peak HR (bpm): 87 Resting BP (mmHg): 134 / 65 Peak BP (mmHg): 149 / 64 MPHR: 135 Target HR: 115 % MPHR: 64 METS: 1.0 Total Dose: Peak Dose: Atropine: Double Product: 49030 BP Response: Stress Termination: PROTOCOL COMPLETE Stress Symptoms: NO SYMPTOMS Stress Summary: ECG ANALYSIS Resting ECG: Stress ECG: CONCLUSIONS No ECG evidence for ischemia during Lexiscan infusion Dr. Villa Musa MD (Electronically Signed) Final Date: 27 Nov 2022 19:48
--- NOTE | 2022-11-27 22:09 | HP ---
HISTORY AND PHYSICAL HISTORY OF PRESENT ILLNESS: I saw her on 11/26/2022 in the emergency room. This is a white female, 87 years old with moderate mitral regurg, moderate aortic regurg, hypertension, valvular heart disease, saw Dr. Barraza to see the patient for chest pain. She came in due to her discomfort. She is crying, she is anxious, she is jittery. She has tingling. She is having some dizziness. Tonight, she has shortness of breath with exertion. Her allergies have been bothering her really bad. EKG shows sinus rhythm. Chest x-ray is negative. White count is 5.2, platelets 168. D-dimer is 0.43, creatinine 0.92. MEDICINES AT HOME: 1. Norvasc 5 mg daily. 2. Hydrochlorothiazide 25 daily. Echo in June 06, 2021, normal EF, moderate MR, AR. REVIEW OF SYSTEMS: A 14-point review of systems, allergies, runny eyes, itchy eyes, shortness of breath with exertion. SURGICAL HISTORY: Hysterectomy and orthopedic surgery. She has had cataract surgery, breast biopsies, partial thyroidectomy. ALLERGIES: Allergies codeine, penicillins. PHYSICAL EXAMINATION: GENERAL: She is crying. she is anxious. CARDIOVASCULAR: S1, S2. LUNGS: Decreased breath sounds x4. ABDOMEN: Soft, nontender. EXTREMITIES: No cyanosis, clubbing, edema. NEUROLOGIC: Alert, oriented x3. Cranial nerves intact. HEMATOLOGY: Negative for Homans. PSYCH: Crying. ASSESSMENT: Atypical chest pain, moderate MR, AR, allergic rhinitis, allergic asthma, hypertension, valvular heart disease, rule out SD, possible stress test prior to discharge, possibly treat for breathing issues Associated with asthma, some cardiac medications. Prognosis guarded. MMODL / IJN: [id number] /
[2022-11-27] MEDS ORDERED: SODIUM CHLORIDE 0.9% 1,000 ML in EMPTY BAG 1 BAG IV SCH (23:00)
[2022-11-28 02:29] VITALS: RESP 16
[2022-11-28 05:06] LABS: Glucose,Whole Blood 94 mg/dL (70-110)
[2022-11-28] MEDS: amLODIPine 5 MG TAB PO SCH (05:59)
[2022-11-28] MEDS ORDERED: ATORVASTATIN 80 MG TAB PO ONE (06:00)
[2022-11-28] MEDS ORDERED: ASPIRIN 325 MG TAB PO ONE (06:00)
[2022-11-28] MEDS ORDERED: HEPARIN SODIUM,PORCINE 10,000 UNIT in SODIUM CHLORIDE 0.9% 1,000 ML IRRIGATION PRN (07:00)
[2022-11-28] MEDS ORDERED: HEPARIN SODIUM,PORCINE 2,500 UNIT in SODIUM CHLORIDE 0.9% 250 ML IRRIGATION PRN (07:00)
[2022-11-28 08:02] VITALS: PULSE 91
[2022-11-28] MEDS ORDERED: HEPARIN SODIUM 1,000 UN/ML (10ML VL) ONE (10:08)
[2022-11-28] MEDS ORDERED: VERAPAMIL 2.5 MG/ML 2 ML AMP ONE (10:08)
--- NOTE | 2022-11-28 10:19 | CA ---
Transthoracic Echo Report Name: Tanvi Azul Age: 87 Gender: F : 1935 Exam Date: 11/27/2022 14:16 Exam Location: [facility] [place] Echo Ht (in): 66 Wt (lb): 154 Ordering Physician: Penelope Beck Attending/Referring Phys: [id number], Ebony Power Hammer Operator Dianna Pinon, THOR Procedure CPT: Indications: LV function, CP Cardiac Hx: Technical Quality: Good Contrast 1: Total Dose (mL): Contrast 2: Total Dose (mL): MEASUREMENTS (Male / Female) Normal Values 2D ECHO LV Diastolic Diameter PLAX 4.4 cm 4.2 - 5.9 / 3.9 - 5.3 cm LV Systolic Diameter PLAX 2.8 cm IVS Diastolic Thickness 1.0 cm 0.6 - 1.0 / 0.6 - 0.9 cm LVPW Diastolic Thickness 1.2 cm 0.6 - 1.0 / 0.6 - 0.9 cm LV Relative Wall Thickness 0.5 RV Internal Dim ED PLAX 2.5 cm LA Systolic Diameter LX 3.2 cm 3.0 - 4.0 / 2.7 - 3.8 cm LV Diastolic Volume MOD 4C 75.7 cm??? LV Systolic Volume MOD 4C 29.6 cm??? LV Ejection Fraction MOD 4C 60.9 % LV Diastolic Length 4C 7.3 cm LV Systolic Length 4C 6.2 cm LV Diastolic Volume MOD 2C 44.7 cm??? LV Systolic Volume MOD 2C 19.9 cm??? LV Ejection Fraction MOD 2C 55.5 % LV Diastolic Length 2C 7.4 cm LV Systolic Length 2C 5.8 cm LA Volume 31.2 cm??? 18 - 58 / 22 - 52 cm??? M-MODE Aortic Root Diameter MM 2.9 cm MV E Point Septal Separation 0.5 cm AV Cusp Separation MM 1.9 cm DOPPLER AV Peak Velocity 166.7 cm/s AV Peak Gradient 11.1 mmHg AI Peak Velocity 282.7 cm/s AI Peak Gradient 32.0 mmHg AI Pressure Half Time 908.9 ms MV Area PHT 3.5 cm??? Mitral E Point Velocity 81.5 cm/s Mitral A Point Velocity 104.1 cm/s Mitral E to A Ratio 0.8 MV Deceleration Time 216.0 ms MV E' Velocity 6.0 cm/s Mitral E to MV E' Ratio 13.5 TR Peak Velocity 264.1 cm/s TR Peak Gradient 27.9 mmHg Right Ventricular Systolic Press 32.8 mmHg FINDINGS Left Ventricle Left ventricular ejection fraction is estimated at 55-60 %. Left ventricular cavity size normal. Mildly increased posterior wall thickness. Normal left ventricular wall motion. Right Ventricle Normal right ventricular size and function. Right ventricular systolic pressure within normal limits. Right Atrium Normal right atrial size. Left Atrium Normal left atrial size. Mitral Valve Structurally normal mitral valve. Trace mitral regurgitation. Aortic Valve Trileaflet aortic valve. No aortic stenosis. Mild aortic regurgitation. Tricuspid Valve Structurally normal tricuspid valve. Mild tricuspid regurgitation. Pulmonic Valve Structurally normal pulmonic valve. Pericardium Normal pericardium. No pericardial effusion. Aorta Normal size aortic root and proximal ascending aorta. CONCLUSIONS Normal LV systolic function Normal RV size and systolic function Mild valvular abnormalities Previewed by: Dr. Villa Musa MD (Electronically Signed) Final Date: 28 Nov 2022 10:18
[2022-11-28] MEDS ORDERED: MIDAZOLAM 2 MG/2 ML VIAL IV ONE (10:51)
[2022-11-28] MEDS ORDERED: IV FLUID CONTINUATION 250 ML IV ONE (10:51)
[2022-11-28] MEDS ORDERED: LIDOCAINE 1% INJ 10MG/ML (5 ML VIAL-PF) SQ ONE (10:53)
[2022-11-28] MEDS ORDERED: VERAPAMIL SYRINGE (5 MG/10 ML) INTRAARTER ONE (10:54)
[2022-11-28] MEDS ORDERED: HEPARIN SODIUM 1,000 UN/ML (10ML VL) IV ONE (10:59)
[2022-11-28] MEDS ORDERED: IOPAMIDOL-370 100ML BTL INJ ONE (11:07)
--- NOTE | 2022-11-28 11:07 | P.PCN ---
Date of Procedure: 11/28/22 Operative Findings: CARDIAC CATHETERIZATION PERFORMING PHYSICIAN: Brien Barraza MD, RPVI PROCEDURE PERFORMED: 1. Selective right and left coronary angiogram 2. Ultrasound-guided access of the right radial artery INDICATION: Chest discomfort in this 87-year-old female patient who underwent myocardial perfusion imaging stress test came in to be abnormal. It did show evidence of possible triple-vessel CAD. COMPLICATION: None APPROACH: Right radial artery LEVEL OF SEDATION: Moderate with a sedation length of 9 minutes PROCEDURE DESCRIPTION: After obtaining an informed consent, the patient was brought to cardiac specialist employee labor relations. Local anesthesia was performed using lidocaine subcutaneously. The right radial artery was cannulated using Seldinger technique, the guidewire passed easily, following that we advanced a 5-Martiniquais sheath dilator assembly, the wire and dilator were removed and sheath was flushed. Following that, 2 mg of verapamil along with 3000 unit heparin were given. Selective right and left coronary angiogram using a 6-Martiniquais JR4 and JL 3.5 catheters. The procedure was completed there was no complication. SELECTIVE CORONARY ANGIOGRAM: The right coronary artery: Large-caliber vessel and a dominant vessel and appeared to be angiographically normal. Its only mildly calcified Left main: Is angiographically normal. Bifurcates into an LCx and LAD The left circumflex: Large caliber vessel nondominant vessel appeared to be angiographically normal. Gives rises into the first and second and third obtuse marginal branches. The left anterior descending artery: The proximal LAD appeared to have mild disease only. The mid and distal LAD appears to be angiographically normal. CONCLUSION: 1. Mild nonobstructive coronary artery disease POSTPROCEDURE MANAGEMENT: Medical treatment and follow-up with the patient
[2022-11-28 15:39] VITALS: BP 134/64; TEMP 97.7
== END 2022-11-28 17:17 | disposition home or self-care (01) | DRG 287 ==
LOC: EC 10:44 → OBSVTOIN 14:59 → 6NMEDSUR 14:59 → OBSVTOIN 11-27 14:49 → INTOOBSV 11-27 14:49 → UNDODISIN 11-28 17:17
PROVIDERS: ADMIT Family Medicine; ATTEND Family Medicine
PROC: B2111ZZ Fluoroscopy of Multiple Coronary Arteries using Low Osmolar Contrast (ICD-10-PCS; principal; 2022-11-28 07:30)
DX: I25.119 Atherosclerotic heart disease of native coronary artery with unspecified angina pectoris (principal); I25.2 Old myocardial infarction; I10 Essential (primary) hypertension; I08.3 Combined rheumatic disorders of mitral, aortic and tricuspid valves; Z79.899 Other long term (current) drug therapy; Z90.710 Acquired absence of both cervix and uterus; Z98.42 Cataract extraction status, left eye; Z98.41 Cataract extraction status, right eye; Z88.5 Allergy status to narcotic agent; Z88.0 Allergy status to penicillin
CPT/HCPCS: 36415; 71046; 78452; 80048; 80053; 81003; 83735; 84443; 84484; 85025; 85379; 85610; 85730; 93005; 93017; 93306; 93454; 96374; 96375; 99285

== ENCOUNTER 2023-06-13 16:07 | Emergency (ER) | payer MEDICARE ==
[2023-06-13] MEDS ORDERED: ACETAMINOPHEN TAB 325 MG TAB PO STA (16:36)
[2023-06-13] MEDS ORDERED: SODIUM CHLORIDE 0.9% 1,000 ML IV STA (16:36)
--- NOTE | 2023-06-13 16:38 | ED ---
General Adult HPI - General Chief complaint: Weakness Stated complaint: leg pain Time Seen by Provider: 06/13/23 16:27 Source: patient Mode of arrival: wheelchair Limitations: no limitations - History of Present Illness Initial comments: Patient is an 88-year-old female presented ER with chief complaint of weakness. Patient has been being treated for a UTI for the past couple of weeks. Patient has been on 2 other medications in the past and has had an allergic reaction to both of them. She is currently taking Macrobid. Patient states that today she is does not feel like herself and feels very weak. Patient states she does have a mild headache. She describes a burning sensation in her chest as well. Denies any shortness of breath, fevers, abdominal pain, peripheral edema. - Related Data Home Medications Medication Instructions Recorded Confirmed hydroCHLOROthiazide 25 mg PO DAILY 11/26/22 06/13/23 Clotrimazole/Betameth Cream 1 applic TOPICAL BID 06/13/23 06/13/23 [Lotrisone] Nitrofurantoin Monohyd/M-Cryst 100 mg PO Q12HR 06/13/23 06/13/23 [Macrobid] amLODIPine [Norvasc] 2.5 mg PO DAILY 06/13/23 06/13/23 Allergies Allergy/AdvReac Type Severity Reaction Status Date / Time codeine Allergy Rash/Hives Verified 06/13/23 20:26 nitrofurantoin Allergy Rash/Hives Verified 06/13/23 20:26 [From Macrodantin] Penicillins Allergy Rash/Hives Verified 06/13/23 20:26 Review of Systems ROS Statement: Those systems with pertinent positive or pertinent negative responses have been documented in the HPI. ROS Other: All systems not noted in ROS Statement are negative. Past Medical History Past Medical History: No Reported History Additional Past Medical History / Comment(s): leaky aorta valve History of Any Multi-Drug Resistant Organisms: None Reported Past Surgical History: Hysterectomy Additional Past Surgical History / Comment(s): cataract surgery Past Anesthesia/Blood Transfusion Reactions: Postoperative Nausea & Vomiting (PONV) Additional Past Anesthesia/Blood Transfusion Reaction / Comment(s): Never had a blood transfusion. Past Psychological History: No Psychological Hx Reported Past Alcohol Use History: None Reported Past Drug Use History: None Reported General Exam Limitations: no limitations General appearance: alert, in no apparent distress Respiratory exam: Present: normal lung sounds bilaterally. Absent: respiratory distress, wheezes, rales, rhonchi, stridor Cardiovascular Exam: Present: regular rate, normal rhythm, normal heart sounds. Absent: systolic murmur, diastolic murmur, rubs, gallop, clicks GI/Abdominal exam: Present: soft, tenderness (suprapubic), normal bowel sounds. Absent: distended, guarding, rebound, rigid Back exam: Present: normal inspection Neurological exam: Present: alert, oriented X3, CN II-XII intact Psychiatric exam: Present: normal affect, normal mood Skin exam: Present: warm, dry, intact, normal color. Absent: rash Course Vital Signs 06/13/23 06/13/23 06/13/23 16:13 16:55 18:59 Temperature 100.7 F H 102.7 F H 99.4 F Pulse Rate 120 H 77 Respiratory 20 18 Rate Blood Pressure 120/70 111/53 O2 Sat by Pulse 93 L 95 Oximetry 06/13/23 06/13/23 22:30 23:32 Temperature 97.7 F Pulse Rate 78 75 Respiratory 17 18 Rate Blood Pressure 138/58 124/59 O2 Sat by Pulse 98 97 Oximetry Medical Decision Making - Medical Decision Making Was pt. sent in by a medical professional or institution (, PA, TEACHERS' AIDE, urgent care, hospital, or residential...) When possible be specific @ -No Did you speak to anyone other than the patient for history (EMS, parent, family, police, friend...)? What history was obtained from this source @ -Family Did you review nursing and triage notes (agree or disagree)? Why? @ -I reviewed and agree with nursing and triage notes Were old charts reviewed (outside hosp., previous admission, EMS record, old EKG, old radiological studies, urgent care reports/EKG's, residential records)? Report findings @ -No old charts were reviewed Differential Diagnosis (chest pain, altered mental status, abdominal pain women, abdominal pain men, vaginal bleeding, weakness, fever, dyspnea, syncope, headache, dizziness, GI bleed, back pain, seizure, CVA, palpatations, mental health, musculoskeletal)? @ -Differential Weakness: Hypoglycemia, shock, sepsis, hyponatremia, anemia, infection, UT, ETOH, adverse medicine reaction, overdose, stroke, this is not meant to be an all-inclusive list. EKG interpreted by me (3pts min.). @ -As above X-rays interpreted by me (1pt min.). @ -Chest x-ray shows no acute cardiopulmonary process. CT interpreted by me (1pt min.). @ -CT abdomen and pelvis showed no definitive inflammatory or obstructive process. There is moderate stool throughout the colon. There is a small to moderate-sized hiatal hernia. U/S interpreted by me (1pt. min.). @ -None done What testing was considered but not performed or refused? (CT, X-rays, U/S, labs)? Why? @ -None What meds were considered but not given or refused? Why? @ -None Did you discuss the management of the patient with other professionals (professionals i.e. , PA, TEACHERS' AIDE, lab, RT, psych nurse, social security assessor, repairer auto clocks, teacher, supply officer, case checker)? Give summary @ -No Was smoking cessation discussed for >3mins.? @ -No Was critical care preformed (if so, how long)? @ -No Were there social determinants of health that impacted care today? How? (Homelessness, low income, unemployed, alcoholism, drug addiction, tra nsportation, low edu. Level, literacy, decrease access to med. care, shelter, rehab)? @ -No Was there de-escalation of care discussed even if they declined (Discuss DNR or withdrawal of care, Hospice)? DNR status @ -No What co-morbidities impacted this encounter? (DM, HTN, Smoking, COPD, CAD, Cancer, CVA, ARF, Chemo, Hep., AIDS, mental health diagnosis, sleep apnea, morbid obesity)? @ -None Was patient admitted / discharged? Hospital course, mention meds given and route, prescriptions, significant lab abnormalities, going to OR and other pertinent info. @ -Discharge. Patient is an 88-year-old female presenting to the ER with a chief complaint of not feeling right. Upon examination, patient had a temperature of 102.7. Physical exam was performed and significant for mild suprapubic tenderness. Labs obtained in the ER showed white blood cell count of 18.4, lactic acid 2.2 urinalysis showed moderate blood, 12 RBCs. Viral swabs taken ER were negative. Chest x-ray showed no acute cardiopulmonary process. CT abdomen and pelvis showed no definitive inflammatory obstructive process. There was moderate stool throughout the colon. There is also a small to moderate-sized hiatal hernia. EKG showed normal sinus rhythm with right bundle-branch block. There is no ST segment or T-wave abnormalities present. Patient received by mouth Tylenol for fever control in the ER with improvement. Patient also received 1 L of IV fluids. Upon reevaluation, patient mentioned that she was also recently on prednisone for the UTI. Dr. Reyes spoke and examined patient as well. I discussed with patient that she should continue prescribed Macrobid and finished the full course. I advised patient to have a low threshold to return to ER if symptoms worsen. Return parameters were discussed. Patient will be discharged in stable condition with follow-up to PCP. Patient expressed understanding and agreement with care plan. Undiagnosed new problem with uncertain prognosis? @ -No Drug Therapy requiring intensive monitoring for toxicity (Heparin, Nitro, Insulin, Cardizem)? @ -No Were any procedures done? @ -No Diagnosis/symptom? @ -Leukocytosis/Hematuria Acute, or Chronic, or Acute on Chronic? @ -Acute Uncomplicated (without systemic symptoms) or Complicated (systemic symptoms)? @ -Uncomplicated Side effects of treatment? @ -No Exacerbation, Progression, or Severe Exacerbation? @ -[No Poses a threat to life or bodily function? How? (Chest pain, USA, UT, pneumonia, PE, COPD, DKA, ARF, appy, cholecystitis, CVA, Diverticulitis, Homicidal, Suicidal, threat to staff... and all critical care pts) @ -No - Lab Data Result diagrams: 06/13/23 16:58 06/13/23 16:58 Lab Results 06/13/23 06/13/23 06/13/23 Range/Units 16:58 16:58 16:58 WBC 18.4 H (3.8-10.6) k/uL RBC 5.01 (3.80-5.40) m/uL Hgb 16.2 H (11.4-16.0) gm/dL Hct 47.3 H (34.0-46.0) % MCV 94.4 (80.0-100.0) fL MCH 32.3 (25.0-35.0) pg MCHC 34.2 (31.0-37.0) g/dL RDW 12.6 (11.5-15.5) % Plt Count 141 L (150-450) k/uL MPV 8.5 Sodium 137 (137-145) mmol/L Potassium 3.9 (3.5-5.1) mmol/L Chloride 101 (98-107) mmol/L Carbon Dioxide 23 (22-30) mmol/L Anion Gap 13 mmol/L BUN 24 H (7-17) mg/dL Creatinine 0.81 (0.52-1.04) mg/dL Est GFR (CKD-EPI)AfAm 77 (>60 ml/min/1.73 sqM) Est GFR (CKD-EPI)NonAf 66 (>60 ml/min/1.73 sqM) Glucose 117 H (74-99) mg/dL Lactic Ac Sepsis Rflx Plasma Lactic Acid Gary (0.7-2.0) mmol/L Calcium 9.5 (8.4-10.2) mg/dL Total Bilirubin 1.4 H (0.2-1.3) mg/dL AST 25 (14-36) U/L ALT 18 (4-34) U/L Alkaline Phosphatase 69 (38-126) U/L Total Protein 6.4 (6.3-8.2) g/dL Albumin 3.9 (3.5-5.0) g/dL Urine Color Urine Appearance (Clear) Urine pH (5.0-8.0) Ur Specific [place] (1.001-1.035) Urine Protein (Negative) Urine Glucose (UA) (Negative) Urine Ketones (Negative) Urine Blood (Negative) Urine Nitrite (Negative) Urine Bilirubin (Negative) Urine Urobilinogen (<2.0) mg/dL Ur Leukocyte Esterase (Negative) Urine RBC (0-5) /hpf Urine WBC (0-5) /hpf Ur Squamous Epith Cells (0-4) /hpf Calcium Oxalate Crystal (None) /hpf Urine Mucus (None) /hpf Influenza Type A (PCR) Not Detected (Not Detectd) Influenza Type B (PCR) Not Detected (Not Detectd) RSV (PCR) Not Detected (Not Detectd) SARS-CoV-2 (PCR) Not Detected (Not Detectd) 06/13/23 06/13/23 06/13/23 Range/Units 16:58 16:58 18:31 WBC (3.8-10.6) k/uL RBC (3.80-5.40) m/uL Hgb (11.4-16.0) gm/dL Hct (34.0-46.0) % MCV (80.0-100.0) fL MCH (25.0-35.0) pg MCHC (31.0-37.0) g/dL RDW (11.5-15.5) % Plt Count (150-450) k/uL MPV Sodium (137-145) mmol/L Potassium (3.5-5.1) mmol/L Chloride (98-107) mmol/L Carbon Dioxide (22-30) mmol/L Anion Gap mmol/L BUN (7-17) mg/dL Creatinine (0.52-1.04) mg/dL Est GFR (CKD-EPI)AfAm (>60 ml/min/1.73 sqM) Est GFR (CKD-EPI)NonAf (>60 ml/min/1.73 sqM) Glucose (74-99) mg/dL Lactic Ac Sepsis Rflx Y Plasma Lactic Acid Gary 2.2 H* (0.7-2.0) mmol/L Calcium (8.4-10.2) mg/dL Total Bilirubin (0.2-1.3) mg/dL AST (14-36) U/L ALT (4-34) U/L Alkaline Phosphatase (38-126) U/L Total Protein (6.3-8.2) g/dL Albumin (3.5-5.0) g/dL Urine Color Yellow Urine Appearance Clear (Clear) Urine pH 6.0 (5.0-8.0) Ur Specific [place] 1.015 (1.001-1.035) Urine Protein Negative (Negative) Urine Glucose (UA) Negative (Negative) Urine Ketones Negative (Negative) Urine Blood Moderate H (Negative) Urine Nitrite Negative (Negative) Urine Bilirubin Negative (Negative) Urine Urobilinogen <2.0 (<2.0) mg/dL Ur Leukocyte Esterase Negative (Negative) Urine RBC 12 H (0-5) /hpf Urine WBC 10 H (0-5) /hpf Ur Squamous Epith Cells 8 H (0-4) /hpf Calcium Oxalate Crystal Occasional H (None) /hpf Urine Mucus Rare H (None) /hpf Influenza Type A (PCR) (Not Detectd) Influenza Type B (PCR) (Not Detectd) RSV (PCR) (Not Detectd) SARS-CoV-2 (PCR) (Not Detectd) 06/13/23 Range/Units 23:00 WBC (3.8-10.6) k/uL RBC (3.80-5.40) m/uL Hgb (11.4-16.0) gm/dL Hct (34.0-46.0) % MCV (80.0-100.0) fL MCH (25.0-35.0) pg MCHC (31.0-37.0) g/dL RDW (11.5-15.5) % Plt Count (150-450) k/uL MPV Sodium (137-145) mmol/L Potassium (3.5-5.1) mmol/L Chloride (98-107) mmol/L Carbon Dioxide (22-30) mmol/L Anion Gap mmol/L BUN (7-17) mg/dL Creatinine (0.52-1.04) mg/dL Est GFR (CKD-EPI)AfAm (>60 ml/min/1.73 sqM) Est GFR (CKD-EPI)NonAf (>60 ml/min/1.73 sqM) Glucose (74-99) mg/dL Lactic Ac Sepsis Rflx Plasma Lactic Acid Gary 1.6 (0.7-2.0) mmol/L Calcium (8.4-10.2) mg/dL Total Bilirubin (0.2-1.3) mg/dL AST (14-36) U/L ALT (4-34) U/L Alkaline Phosphatase (38-126) U/L Total Protein (6.3-8.2) g/dL Albumin (3.5-5.0) g/dL Urine Color Urine Appearance (Clear) Urine pH (5.0-8.0) Ur Specific [place] (1.001-1.035) Urine Protein (Negative) Urine Glucose (UA) (Negative) Urine Ketones (Negative) Urine Blood (Negative) Urine Nitrite (Negative) Urine Bilirubin (Negative) Urine Urobilinogen (<2.0) mg/dL Ur Leukocyte Esterase (Negative) Urine RBC (0-5) /hpf Urine WBC (0-5) /hpf Ur Squamous Epith Cells (0-4) /hpf Calcium Oxalate Crystal (None) /hpf Urine Mucus (None) /hpf Influenza Type A (PCR) (Not Detectd) Influenza Type B (PCR) (Not Detectd) RSV (PCR) (Not Detectd) SARS-CoV-2 (PCR) (Not Detectd) - EKG Data -: EKG Interpreted by Me EKG Comments: EKG taken at 17:00 shows sinus tachycardia with a right bundle branch block. No acute ST segment or T waves abnormalities are noted. Ventricular rate 106, AK interval 169, QRS duration 133, QT/QTC 346/408. - Radiology Data Radiology results: report reviewed, image reviewed Disposition Clinical Impression: Leukocytosis, Weakness Disposition: HOME SELF-CARE Condition: Stable Additional Instructions: Please return to the Emergency Department if symptoms worsen or any other concerns. Please continue Macrobid as prescribed. Please have a low threshold for returning to the ER. Please follow-up with PCP. Is patient prescribed a controlled substance at d/c from ED?: No Referrals: Bradly Casey MD [Primary Care Provider] - 1-2 days Time of Disposition: 23:01
[2023-06-13 17:53] LABS: HCT 47.3 % (34.0-46.0); HGB 16.2 gm/dL (11.4-16.0); MCH 32.3 pg (25.0-35.0); MCHC 34.2 g/dL (31.0-37.0); MCV 94.4 fL (80.0-100.0); Mean Platelet Volume 8.5; Platelet Count 141 k/uL (150-450); RBC 5.01 m/uL (3.80-5.40); RDW 12.6 % (11.5-15.5); WBC 18.4 k/uL (3.8-10.6)
--- NOTE | 2023-06-13 18:02 | XR ---
EXAMINATION TYPE: XR chest 2V DATE OF EXAM: 06/13/2023 5:32 PM CLINICAL INDICATION:Female, 88 years old with history of weakness; [facility] COMPARISON: 11/26/2022 TECHNIQUE: XR chest 2V. Frontal PA and lateral views of the chest. FINDINGS: Lines/Tubes: None. Heart/mediastinum: Cardiomediastinal silhouette is well defined. Heart size upper limits of normal w ith mildly prominent pericardial fat. Atherosclerotic calcifications are seen in the aorta. Pulmonary vascularity: Not increased, Lungs/Pleura: Lungs appear hyperinflated with interstitial coarsening, findings suggestive of COPD/em physema. There is no evidence of pleural effusion, focal consolidation, or pneumothorax. Musculoskeletal: No acute osseous abnormality demonstrated in the limits of the exam. Degenerative c hanges of the spine and shoulders. Other findings: Surgical clips in the right upper abdomen likely from cholecystectomy. IMPRESSION: No acute cardiopulmonary abnormality.
[2023-06-13 18:13] LABS: ALT 18 U/L (4-34); African American GFR (CKD) 77 (>60 ml/min/1.73 sqM); Albumin 3.9 g/dL (3.5-5.0); Anion Gap 13 mmol/L; Blood Urea Nitrogen 24 mg/dL (7-17); Calcium 9.5 mg/dL (8.4-10.2); Carbon Dioxide 23 mmol/L (22-30); Chloride 101 mmol/L (98-107); Glucose 117 mg/dL (74-99); Non-African American GFR(CKD) 66 (>60 ml/min/1.73 sqM); Sodium 137 mmol/L (137-145); Total Bilirubin 1.4 mg/dL (0.2-1.3); Total Protein 6.4 g/dL (6.3-8.2)
[2023-06-13 18:31] LABS: AST 25 U/L (14-36); Alkaline Phosphatase 69 U/L (38-126); Potassium 3.9 mmol/L (3.5-5.1)
[2023-06-13 19:11] LABS: Appearance,Urine Clear (Clear); Bilirubin,Urine Negative (Negative); Blood,Urine Moderate (Negative); Color,Urine Yellow; Glucose,Urine (UA) Negative (Negative); Ketones,Urine Negative (Negative); Leukocyte Esterase,Urine Negative (Negative); Nitrite,Urine Negative (Negative); Protein,Urine Negative (Negative); Specific Gravity,Urine 1.015 (1.001-1.035); Urobilinogen,Urine <2.0 mg/dL (<2.0)
[2023-06-13 19:17] LABS: Calcium Oxalate Crystals,Urine Occasional /hpf; Mucus,Urine Rare /hpf; RBC,Urine 12 /hpf (0-5); Squamous Epithelial Cell,Urine 8 /hpf (0-4); WBC,Urine 10 /hpf (0-5)
--- NOTE | 2023-06-13 22:48 | CT ---
EXAMINATION TYPE: CT abdomen pelvis w con CT DLP: 840.4 mGycm, Automated exposure control for dose reduction was used. DATE OF EXAM: 06/13/2023 8:03 PM COMPARISON: Noncontrast CT 10/11/2021 CLINICAL INDICATION:Female, 88 years old with history of pain; abdominal pain, weakness TECHNIQUE: Axial CT of the abdomen and pelvis. Sagittal and coronal reformats were created on a [employer] workstation. Contrast used:100 ml mL of Isovue 300 with IV Contrast, (none if empty) Oral contrast used: without Oral Contrast (none if empty) 21 FINDINGS: LOWER CHEST: Bibasilar scarring or atelectasis. Mild pleural thickening without sizable effusion seen . Mild cardiomegaly without pericardial effusion. Small to moderate sized hiatal hernia with slight i rregular thickening suggested along the wall. ABDOMEN LIVER: Unremarkable GALLBLADDER AND BILE DUCTS: Status post cholecystectomy with clips in the gallbladder fossa. A clip s een along the posterior aspect of the right hepatic lobe is likely migrated. Mild intrahepatic ductal dilatation. The CBD is prominent, measuring up to 15 mm, tapering distally towards the ampulla witho ut gross evidence of an obstructive cause; this appears similar to prior study 10/2021. PANCREAS: Mild diffuse fatty atrophy without acute abnormality. SPLEEN: A couple of small foci of hypoattenuation, nonspecific. ADRENAL GLANDS: Thickened and nodular, likely representing adenomatoid changes. Stable. KIDNEYS AND URETERS: Kidneys enhance symmetrically. There is no evidence of hydronephrosis. Mildly pr ominent bilateral extrarenal pelves. No urinary calculi are appreciated. PELVIS BLADDER: Unremarkable REPRODUCTIVE: The uterus is surgically absent. ABDOMEN & PELVIS STOMACH AND BOWEL: Some portions are collapsed and not well assessed. Some fluid in the gastric lumen without significant distention seen. Duodenal sweep appears patent. No significant distention of sma ll bowel seen to suggest obstruction. Appendix is not identified with certainty, however there is no inflammatory process seen in the RLQ. Fatty infiltration of the ileocecal valve. Moderate stool throu ghout the colon. PERITONEUM/RETROPERITONEUM: No evidence of pneumoperitoneum or free fluid. VASCULATURE: Moderate mixed atherosclerotic disease present throughout the abdominal aorta and its br anches. No evidence of aortic aneurysm. Moderate narrowing of the proximal celiac artery. SMA is werner nt. Mild narrowing of the proximal renal arteries, left greater than right. MUSCULOSKELETAL: Multilevel degenerative changes of the spine with S-shaped thoracolumbar scoliosis i nvolving moderate levocurvature of the lumbar spine and mild dextrocurvature of the visualized thorac ic spine, plus mild rotary component. Mild bilateral hip arthropathy. No acute osseous abnormality. LYMPH NODES: No gross evidence for lymphadenopathy. SOFT TISSUE/ABDOMINAL WALL: Tiny fat-containing umbilical hernia. IMPRESSION: 1. No definite inflammatory or obstructive process to explain the patient's symptoms. 2. Moderate stool throughout the colon, correlate for constipation. 3. [id number] hiatal hernia, with thickened appearance of the wall. Consider upper GI and/or endoscopy as clinically appropriate. 4. Other stable chronic and likely incidental findings, as described above.
[2023-06-13 22:49] VITALS: TEMP 97.7
[2023-06-13 23:34] VITALS: BP 124/59; PULSE 75; RESP 18
== END 2023-06-13 23:45 | disposition home or self-care (01) ==
LOC: EC 16:07
DX: D72.829 Elevated white blood cell count, unspecified (principal); R31.9 Hematuria, unspecified; R53.1 Weakness; I45.10 Unspecified right bundle-branch block; Z88.5 Allergy status to narcotic agent; Z88.0 Allergy status to penicillin; Z88.8 Allergy status to other drugs, medicaments and biological substances; Z20.822 Contact with and (suspected) exposure to COVID-19
CPT/HCPCS: 99285 ×2; 96360 ×2; 36415; 93005; 80053; 83605; 85027; 81001; 87636; 71046; 74177; Q9967

== ENCOUNTER → 2023-08-13 | Outpatient (CLI) | payer MEDICARE ==
[2023-08-13 16:46] LABS: Basophils # (A) 0.03 X 10*3/uL (0.00-0.10); Basophils % (A) 0.7 %; Eosinophils # (A) 0.45 X 10*3/uL (0.04-0.35); Eosinophils % (A) 11.1 %; HCT 40.5 % (37.2-46.3); HGB 13.4 g/dL (12.0-15.0); Lymphocytes # (A) 1.07 X 10*3/uL (0.90-5.00); Lymphocytes % (A) 26.5 %; MCH 31.7 pg (27.0-32.0); MCHC 33.1 g/dL (32.0-37.0); MCV 95.7 FL (80.0-97.0); Mean Platelet Volume 11.4 FL (9.5-12.2); Monocytes # (A) 0.36 X 10*3/uL (0.20-1.00); Monocytes % (A) 8.9 %; NRBC Per 100 WBC 0 X 10*3/uL (0.00-0.01); Neutrophils # (A) 2.12 X 10*3/uL (1.80-7.70); Neutrophils % (A) 52.6 %; Platelet Count 187 X 10*3/uL (140-440); RBC 4.23 X 10*6/uL (4.10-5.20); RDW 12.5 % (11.5-14.5); WBC 4.04 X 10*3/uL (4.50-10.00)
[2023-08-13 16:59] LABS: BUN/Creat Ratio 18.67 Ratio (12.00-20.00); Blood Urea Nitrogen 22.4 mg/dL (9.0-27.0); Calcium 9.9 mg/dL (8.7-10.3); Carbon Dioxide 29.2 mmol/L (21.6-31.8); Chloride 106 mmol/L (96-109); Glucose 106 mg/dL (70-110); Potassium 3.4 mmol/L (3.5-5.5); Sodium 148 mmol/L (135-145)
[2023-08-13 17:15] LABS: Appearance,Urine Turbid (Clear); Bilirubin,Urine Negative (Negative); Blood,Urine Negative (Negative); Color,Urine Yellow (Yellow); Ketones,Urine Trace (Negative); Nitrite,Urine Negative (Negative); Urobilinogen,Urine 0.2 E.U./DL
[2023-08-13 17:37] LABS: Bacteria,Urine Trace
== END | disposition home or self-care (01) ==
LOC: LABPAT 09:25
PROVIDERS: ATTEND Urology
DX: Z01.812 Encounter for preprocedural laboratory examination (principal); N81.9 Female genital prolapse, unspecified
CPT/HCPCS: 80048; 81001; 85025; 86850; 86900; 86901; 87086

== ENCOUNTER 2023-08-20 05:33 | Day surgery (SDC) | payer MEDICARE ==
[2023-08-12 16:13] VITALS: BMI 24.2
[~2023-08-20 05:33] MED LIST: GENTAMICIN 120 MG in SODIUM CHLORIDE 0.9% 100 ML IVPB PRN; LIDOCAINE 1% (10MG/ML) FOR IV START INTRADERMA PRN
[2023-08-20] MEDS: VANCOMYCIN 750 MG in SODIUM CHLORIDE 0.9% 250 ML IVPB PRN (06:30)
[2023-08-20] MEDS: ONDANSETRON 4 MG/2 ML VIAL IVP ONE (06:30)
[2023-08-20] MEDS: DEXAMETHASONE SOD PHOSPHATE 4 MG/ML 1 ML VIAL IV ONE (06:30)
[2023-08-20] MEDS: MIDAZOLAM 2 MG/2 ML VIAL IVP ONE (06:44)
[2023-08-20] MEDS: BUPIVACAINE (PF) 0.5% 30 ML VIAL SQ ONE ×2 (07:00)
[2023-08-20] MEDS: LACTATED RINGERS 1,000 ML IV ONE ×3 (07:00→10:39)
[2023-08-20] MEDS ORDERED: fentaNYL (PF) 50 MCG/ML 2 ML AMP IV PRN (07:00)
--- NOTE | 2023-08-20 07:01 | P.HPIHPCON ---
History of Present Illness H&P Date: 08/20/23 Chief Complaint: Pelvic organ prolapse This is an 88-year-old female with stage IV cystocele, she is symptomatic from her cystocele discussed with her option of a pessary, versus robotic sacrocolpopexy versus vaginal repair risk and benefits of each approach was discussed. She agreed to proceed with the robotic sacrocolpopexy, aware of the risk which includes but not limited to bleeding, infection, injury to nearby organs, potential developing stress incontinence postoperatively. Discussed also I will be using mesh discussed risk of mesh erosion into the bladder, vag he, and rectum. Risk of anesthesia was also discussed. Discussed given her age and comorbidities she is at a higher risk of medical complications. She understood all the risk and agreed to proceed Consent for Procedure: I have explained the operation/procedure to the patient, including the risks, benefits, side effects, alternative therapies (including not receiving the proposed treatment or service), the likelihood of the patient achieving his/her goals, and potential recuperation problems for the procedure/sedation/analgesia, as well as any blood products, if indicated. I also explained to the patient the risks, benefits and side effects of the alternatives, as well as the risks related to not receiving the proposed procedure, care, treatment, or services. Past Medical History Past Medical History: Cancer, Hypertension Additional Past Medical History / Comment(s): Recent UTI - finishing antibiotics. Leaky aortic valve. Hx skin cancer. Hx thyroid nodule. History of Any Multi-Drug Resistant Organisms: None Reported Past Surgical History: Cholecystectomy, Hysterectomy Additional Past Surgical History / Comment(s): Cataract surgery, right thyroidectomy. Past Anesthesia/Blood Transfusion Reactions: Postoperative Nausea & Vomiting (PONV) Additional Past Anesthesia/Blood Transfusion Reaction / Comment(s): Never had a blood transfusion. Past Psychological History: No Psychological Hx Reported Smoking Status: Never smoker Past Alcohol Use History: None Reported Past Drug Use History: None Reported - Past Family History Mother Family Medical History: No Reported History Medications and Allergies Home Medications Medication Instructions Recorded Confirmed Type Bumetanide 1 mg PO DAILY 08/14/23 08/20/23 History Levofloxacin [Levaquin] 250 mg PO DAILY 08/14/23 08/20/23 History Potassium Chloride 10 meq PO DAILY 08/14/23 08/20/23 History amLODIPine BESYLATE 5 mg PO QAM 08/14/23 08/20/23 History Allergies Allergy/AdvReac Type Severity Reaction Status Date / Time codeine Allergy Rash/Hives Verified 08/20/23 06:00 nitrofurantoin Allergy Rash/Hives Verified 08/20/23 06:00 [From Macrodantin] Penicillins Allergy Rash/Hives Verified 08/20/23 06:00 Sulfa (Sulfonamide Allergy Rash/Hives Verified 08/20/23 06:00 Antibiotics) Surgical - Exam Vital Signs Temp Pulse Resp BP Pulse Ox 97.5 F L 88 16 165/65 98 08/20/23 06:30 08/20/23 06:30 08/20/23 06:30 08/20/23 06:30 08/20/23 06:30 - General no distress, no pain - Eyes normal ocular movement, no pale - ENT normal nares, normal mucosa - Respiratory normal expansion, normal respiratory effort Results - Labs 08/20/23 06:15 Diabetes panel 08/20/23 Range/Units 06:15 Potassium 3.8 (3.5-5.1) mmol/L Pituitary panel 08/20/23 Range/Units 06:15 Potassium 3.8 (3.5-5.1) mmol/L Adrenal panel 08/20/23 Range/Units 06:15 Potassium 3.8 (3.5-5.1) mmol/L Assessment and Plan Assessment: OR for robotic sacrocolpopexy
[2023-08-20] MEDS: LACTATED RINGERS 1,000 ML IV SCH (07:02)
[2023-08-20] MEDS ORDERED: ONDANSETRON 4 MG/2 ML VIAL IVP PRN (07:19)
--- NOTE | 2023-08-20 07:59 | P.ANPRN ---
Procedure Note - Anesthesia - Nerve Block Performed Bilateral Erector Spinae Single Time Out Performed: Yes ([id number]) Date of Procedure: 08/20/23 Procedure Start Time: 06:45 Procedure Stop Time: 06:52 Indication: Acute Post-Operative Pain, Requested by Surgeon Sedation Type: Sedate with meaningful contact maintained Preparation: Sterile Prep, Sterile Dressing Position: Sitting Catheter: None Needle Types: Pajunk Needle Gauge: 21 Ultrasound used to visualize needle placement: Yes Ultrasound used to observe medication spread: Yes Injectate: 0.5% Ropivacaine (see comment for volume) (20 mL of block solution injected on each side. The block solution containing 20 ML of 0.5% ropivacaine mixed with 20 ML of preservative-free normal saline) Blood Aspirated: No Pain Paresthesia on Injection Noted: No Resistance on Injection: Normal Image Stored and Saved: Yes Events: Uneventful and Well Tolerated
--- NOTE | 2023-08-20 08:54 | P.OP ---
Date of Procedure: 08/20/23 Preoperative Diagnosis: Pelvic organ prolapse Postoperative Diagnosis: Same Procedure(s) Performed: Lysis of adhesion, attempted robotic sacrocolpopexy Implants: none Anesthesia: ANTONIOA Surgeon: Kyle Orellana Estimated Blood Loss (ml): 25 Pathology: none sent Condition: stable Disposition: PACU Indications for Procedure: This is an 88-year-old female with stage IV cystocele, she is symptomatic from her cystocele discussed with her option of a pessary, versus robotic sacrocolpopexy versus vaginal repair risk and benefits of each approach was discussed. She agreed to proceed with the robotic sacrocolpopexy, aware of the risk which includes but not limited to bleeding, infection, injury to nearby organs, potential developing stress incontinence postoperatively. Discussed also I will be using mesh discussed risk of mesh erosion into the bladder, vagina, and rectum. Risk of anesthesia was also discussed. Discussed given her age and comorbidities she is at a higher risk of medical complications. She understood all the risk and agreed to proceed Operative Findings: Significant amount of adhesion involving the left lower quadrant in the midline, additionally patient's CO2 continued to rise throughout the case, case was aborted secondary to end tidal CO2 elevation. Description of Procedure: She was taken to the OR and administered general anesthesia and placed in lithotomy position. Insufflation was obtained using the Veress needle. Next the robotic camera port was placed above the umbilicus, a 8mm robotic port was placed on the right side, an additional 12 mm regulatory affairs assistant port was placed more laterally. Laparoscopy was performed showed significant adhesions involving the midline and the left lower quadrants. At this point using the laparoscopic LigaSure adhesion involving the omentum was taken down, adhesion involving the bowel was taken down using laparoscopic scissors. At this point there was enough space created to allow for placement of 2 additional robotic trocars on the left side, 2 robotic ports were placed on the left. The robot was then docked. At this point adhesions were lysed further using the robotic scissors. Greater than 45 minutes were spent lysing adhesions. At this point in the case patient end-tidal CO2 continues to rise her end-tidal CO2 was elevated at 65. Multiple measures were attempted to decrease patient's end-tidal CO2 but her end-tidal CO2 continued to be elevated. Given her respiratory status decision was made to abort the case. At this point the robot was undocked.. And the abdomen was desufflated and all ports were removed. All the incisions were closed with 4-0 Monocryl subcuticular sutures and the patient was sent to recovery in stable condition. All counts were correct x 2.
[2023-08-20] MEDS: droPERidol 5 MG/2 ML VIAL IVP ONE (09:00)
[2023-08-20] MEDS ORDERED: LEVOFLOXACIN 250 MG TAB PO SCH (09:00)
[2023-08-20] MEDS ORDERED: amLODIPine 5 MG TAB PO SCH (09:00)
[2023-08-20] MEDS: D5-0.45% NACL WITH KCL 20MEQ/L 1,000 ML IV SCH (17:58)
[2023-08-20] MEDS: amLODIPine 5 MG TAB PO SCH (17:58)
[2023-08-20] MEDS: KETOROLAC 15 MG/ML 1 ML VIAL IVP SCH (17:58)
[2023-08-20] MEDS: BUMETANIDE 1 MG TAB PO SCH (17:58)
[2023-08-20] MEDS: POTASSIUM CHLORIDE ER 10 MEQ TAB.ER.PRT PO SCH (18:12)
--- NOTE | 2023-08-21 07:50 | P.DS ---
Providers Attending physician: Kyle Orellana MD Primary care physician: [facility] Course: 88-year-old female admitted for surgery yesterday 08/20/23 for a robotic-assisted sacral colpopexy. Unfortunately she could not tolerate the pneumoperitoneum from a pulmonary standpoint and the case was aborted. She did well overnight. She has no pain. The issue was discussed by with the patient last night as well as me this morning. Condition is good. She'll be discharged home. She'll take Tylenol or Motrin for pain. She'll follow-up with in the office in about 10 days. Patient Condition at Discharge: Good Plan - Discharge Summary Discharge Rx Participant: No New Discharge Prescriptions: No Action Levofloxacin [Levaquin] 250 mg PO DAILY amLODIPine BESYLATE 5 mg PO QAM Potassium Chloride 10 meq PO DAILY Bumetanide 1 mg PO DAILY Discharge Medication List Bumetanide 1 mg PO DAILY 08/14/23 [History] Levofloxacin [Levaquin] 250 mg PO DAILY 08/14/23 [History] Potassium Chloride 10 meq PO DAILY 08/14/23 [History] amLODIPine BESYLATE 5 mg PO QAM 08/14/23 [History] Follow up Appointment(s)/Referral(s): Kyle Orellana MD [STAFF PHYSICIAN] - 10 Days Discharge Disposition: HOME SELF-CARE
[2023-08-21 08:45] VITALS: BP 130/58; PULSE 83; RESP 17; TEMP 98.2
== END 2023-08-21 10:40 | disposition home or self-care (01) ==
LOC: OR 05:33 → EDSTATUS 11:00 → 4SSUR 13:22 → OR 08-21 10:40
PROVIDERS: ATTEND Urology
DX: N81.89 Other female genital prolapse (principal); G89.18 Other acute postprocedural pain; I10 Essential (primary) hypertension; E07.9 Disorder of thyroid, unspecified; Z90.710 Acquired absence of both cervix and uterus; Z90.49 Acquired absence of other specified parts of digestive tract; Z88.5 Allergy status to narcotic agent; Z88.0 Allergy status to penicillin; Z88.2 Allergy status to sulfonamides; Z79.899 Other long term (current) drug therapy
CPT/HCPCS: 64999; 84132; 57425; J2250; J3370; J1100; J2405; J1885; J1790; J0665

== ENCOUNTER → 2023-09-21 | Outpatient (CLI) | payer MEDICARE ==
--- NOTE | 2023-09-21 17:20 | US ---
EXAMINATION TYPE: US thyroid st tissue head/neck DATE OF EXAM: 09/21/2023 COMPARISON: US CLINICAL INDICATION: Female, 88 years old with history of E04.1 THYROID NODULE; F/U prior, right lobe surgically removed GLAND SIZE: Left Lobe: 4.9 x 2.2 x 1.5 cm Overall Parenchyma: heterogenous Isthmus Thickness: 0.4 cm NODULES RIGHT: Surgically absent LEFT: # of nodules measured on left: 1 1. 1.0 X 0.9 x 1.0 cm, lower, solid, Prior size: 1.1 x 0.7 x 1.0 cm TIRADS Score: 4 TIRADS Category 4: Composition: Solid or almost completely solid (2 points). Echogenicity: Hypoechoic (2 points). Shape: Wider than tall (0 points). Margin: Smooth (0 points). Echogenic foci: None or large comet-tail artifacts (0 points) Recommendation: If >1.5cm: FNA; If >1cm: Follow up at 1,2, 3,5 years ISTHMUS: # of nodules measured in the isthmus: 0 Bilateral neck scanned, no evidence of lymphadenopathy. Right tyroid bed appeared wnl, left thyroid h eterogeneous with stable nodule. IMPRESSION: Left thyroid nodule that meet criteria for follow-up.
== END | disposition home or self-care (01) ==
LOC: RADUSWWP 15:53
PROVIDERS: ATTEND Family Medicine
DX: E04.1 Nontoxic single thyroid nodule (principal); Z90.89 Acquired absence of other organs
CPT/HCPCS: 76536

== ENCOUNTER → 2024-01-22 | Outpatient (CLI) | payer MEDICARE ==
--- NOTE | 2024-01-22 10:33 | MM ---
Reason for Exam: Clinical finding. Last screening mammogram was performed 12 month(s) ago. Indicated Problems: Pain of the left side (Focal) for 3 Month(s). Patient History: Menarche at age 15. First Full-Term at age 27. Left ovary removed at age 39. Right ovary removed at age 39. Hysterectomy at age 39. Postmenopausal. Estrogen for 2 years from age 39 until age 41. Core Biopsy on the Left side. Excisional Biopsy on the Right side. Excisional Biopsy on the Right side. Excisional Biopsy on the Left side. Excisional Biopsy on the Left side. Excisional Biopsy on the Left side. Excisional Biopsy on the Left side. 02/14/2002, Benign Stereotactic Core Biopsy on the left side. Paternal aunt had breast cancer. Maternal aunt had breast cancer at or over age 50. Prior Study Comparison: 01/17/2020 Bilateral Screening Mammogram, [facility]. 01/22/2021 Bilateral Screening Mammogram, [facility]. 01/23/2022 Bilateral MG 3D screening mammo w/cad, [facility]. 01/26/2023 Bilateral MG 3D screening mammo w/cad, [facility]. Tissue Density: There are scattered areas of fibroglandular density. Findings: Analyzed By CAD. Lateral subareolar asymmetric density left breast appears more defined but disperses on additional views. Findings compatible with superimposed shadow. Microclip anterior left breast from prior biopsy. Some scattered dystrophic calcifications redemonstrated on the left. No significant change from prior exams. Overall Assessment: Incomplete: need additional imaging evaluation, BI-RAD 0 Management: Diagnostic Breast Ultrasound of the left breast. Lateral pain. Electronically signed and approved by: Asha Strauss M.D. Radiologist
--- NOTE | 2024-01-22 11:02 | USB ---
Reason for Exam: Clinical finding. Patient History: Menarche at age 15. First Full-Term at age 27. Left ovary removed at age 39. Right ovary removed at age 39. Hysterectomy at age 39. Postmenopausal. Estrogen for 2 years from age 39 until age 41. Core Biopsy on the Left side. Excisional Biopsy on the Right side. Excisional Biopsy on the Right side. Excisional Biopsy on the Left side. Excisional Biopsy on the Left side. Excisional Biopsy on the Left side. Excisional Biopsy on the Left side. 02/14/2002, Benign Stereotactic Core Biopsy on the left side. Paternal aunt had breast cancer. Maternal aunt had breast cancer at or over age 50. Technique: Method: Targeted. Prior Study Comparison: 01/22/2021 Bilateral Screening Mammogram, [facility]. 01/23/2022 Bilateral MG 3D screening mammo w/cad, [facility]. 01/26/2023 Bilateral MG 3D screening mammo w/cad, [facility]. Findings: The upper outer quadrant of the left breast, the axilla of the left breast and the retroareolar of the left breast were scanned. Targeted ultrasound upper outer quadrant left breast 12:00 to 3:00 corresponding to the area of patient's pain. Additional scanning of the subareolar region and axilla. No solid or cystic lesion or axillary lymphadenopathy. Subareolar calcification corresponds to mammographic finding. Overall Assessment: Benign, BI-RAD 2 Management: Screening Mammogram of both breasts in 1 year. Further clinical management of patient's lateral left breast pain. A clinical breast exam by your physician is recommended on an annual basis and results should be correlated with mammographic findings. This exam should not preclude additional follow-up of suspicious palpable abnormalities. Results were given to the patient verbally at the time of exam. Electronically signed and approved by: Asha Strauss M.D. Radiologist
== END | disposition home or self-care (01) ==
LOC: RADMAMWWP 09:49
PROVIDERS: ATTEND Family Medicine
DX: N64.4 Mastodynia (principal); Z80.3 Family history of malignant neoplasm of breast; R92.322 Mammographic fibroglandular density, left breast; Z78.0 Asymptomatic menopausal state
CPT/HCPCS: 77062; 77066

== ENCOUNTER → 2024-12-20 | Outpatient (CLI) | payer MEDICARE | END | disposition home or self-care (01) | LOC: LABPAT 08:50 | PROVIDERS: ATTEND Student in an Organized Health Care Education/Training Program | DX: Z01.818 Encounter for other preprocedural examination (principal); I45.10 Unspecified right bundle-branch block; I49.8 Other specified cardiac arrhythmias; R94.31 Abnormal electrocardiogram [ECG] [EKG] | CPT/HCPCS: 93005 ==